=== PATIENT | female | born 1935 | race Caucasian/White ===

== ENCOUNTER → 2022-02-25 15:00 | Outpatient (CLI) | payer MEDICARE, MEDICAID, SELFPAY ==
--- NOTE | 2022-02-25 15:07 | DI.US.S_ITS ---
PROCEDURE: US PERIPH VENOUS LOW EXTREM RT INDICATIONS: SWELLING/EDEMA TECHNIQUE: Real-time imaging, as well as color and pulse Doppler interrogation, were performed of the lower extremity deep veins from the inguinal ligament to the popliteal fossa. COMPARISON: None. FINDINGS: There are intraluminal filling defects involving the common femoral vein, [id number] superficial femoral vein, and popliteal vein, consistent with DVT. The distal superficial femoral vein is occluded. IMPRESSION: The exam is positive for DVT of the right lower extremity. Unable to get in touch with the ordering physician. The patient was sent to the emergency department for clinical evaluation and management. The result was discussed with Dr. Diez. Dictated by: Shanice Sanchez M.D. on 02/25/2022 at 16:15 Approved by: Shanice Sanchez M.D. on 02/25/2022 at 16:36
== END ==
PROVIDERS: Referring Provider Nurse Practitioner Family; Visit Provider Nurse Practitioner Family
DX: I82.411 Acute embolism and thrombosis of right femoral vein (principal); I82.431 Acute embolism and thrombosis of right popliteal vein; I82.811 Embolism and thrombosis of superficial veins of right lower extremity
CPT/HCPCS: 93971

== ENCOUNTER 2022-02-25 15:48 | Emergency (ER) | payer MEDICARE, MEDICAID, SELFPAY ==
[2022-02-25 15:53] VITALS: BP 152/72; PULSE 94; RESP 20; TEMP 36.6; O2SAT 99
--- NOTE | 2022-02-25 17:41 | PC.NURSE ---
Pt arrives to ED from [facility]. had outpatient US of RLE today which was +DVT. Pt reports she does not currently take blood thinners however pt is poor historian with a h/o dementia. Pt resting in [facility] of ED with acute care RN at side. Attempted to call multiple times to get in contact with medical care administrator. Pt safe and daughter Karely made aware of plan of care.
--- NOTE | 2022-02-25 17:54 | PC.NURSE ---
Contacted [facility] clinic administrator-- [phone]. Given number to Kit, [employer] [phone] in which RN left a message on voicemail and a number to the [employer] [phone] and left a message their voicemail.
--- NOTE | 2022-02-25 18:18 | ED.LOWEXIN ---
HPI - Extremity Injury (Lower) <Lilo Singleton PA-C - Last Filed: 02/25/22 19:12> General Chief Complaint: Extremity Injury, Lower Stated Complaint: posivitive blood clot rt leg Time Seen by Provider: 02/25/22 17:24 Source: other Mode of arrival: Wheelchair History of Present Illness HPI Narrative: 86-year-old female with Alzheimer's disease comes into the ED with a right lower leg DVT diagnosis. Patient moved into [facility] yesterday, they sent her for an ultrasound this morning based on a physical exam of the right lower leg, ultrasound was positive for a DVT. Patient is currently not on any medications per patient's daughter Karely. Patient is DNR, Karely would like for patient to be started on anticoagulation as treatment for the DVT. Karely endorses no known allergies for the patient. Also endorses that the current mental status of the patient is her baseline. Related Data Previous Rx's Medication Instructions Recorded apixaban 5 mg (74 tabs) tablets in 5 mg PO Q12H #74 ea 02/25/22 a dose pack (Eliquis DVT-PE Treat 30D Start) Review of Systems <Lilo Singleton PA-C - Last Filed: 02/25/22 19:12> Review of Systems Narrative: Patient has Alzheimer's disease, unable to provide ROS. ROS Unobtainable: All systems reviewed & are unremarkable except as noted in HPI and below and Unobtainable due to mental condition Constitutional Constitutional: Denies chills, Denies fatigue, Denies fever(s), Denies frequent falls, Denies lethargy and Denies weakness Eyes Eyes: Denies change in vision, Denies eye discharge, Denies irritation and Denies loss of vision ENT Ears, Nose, Mouth, and Throat: Denies change in voice, Denies dizziness, Denies neck pain, Denies sore throat and Denies throat swelling Cardiovascular Cardiovascular: Denies chest pain, Denies irregular heart rhythm, Denies lightheadedness, Denies palpitations, Denies dyspnea, Denies dyspnea on exertion and Denies orthopnea Respiratory Respiratory: Denies cough, Denies dyspnea, Denies dyspnea on exertion and Denies wheezing Gastrointestinal Gastrointestinal: Denies abdominal pain, Denies change in bowel habits, Denies diarrhea, Denies nausea and Denies vomiting Genitourinary Genitourinary: Denies hematuria, Denies flank pain, Denies urinary incontinence and Denies urinary urgency Musculoskeletal Musculoskeletal: Denies back pain, Denies muscle weakness, Denies neck pain, Denies numbness and Denies tingling Integumentary/Breasts Skin/Breast: Denies pruritus, Denies erythema, Denies rash and Denies wounds Neurologic Neurologic: Denies behavioral changes, Denies confusion, Denies dizziness, Denies frequent falls, Denies loss of vision, Denies numbness, Denies tingling and Denies weakness Psychiatric Psychiatric: Denies anxiety, Denies behavioral changes, Denies confusion, Denies depression, Denies homicidal ideation and Denies suicidal ideation Endocrine Endocrine: Denies fatigue, Denies flushing and Denies palpitations Hematologic/Lymphatic Hematologic/Lymphatic: Denies easy bruising Allergic/Immunologic Allergic/Immunologic: Denies urticaria, Denies throat swelling and Denies wheezing Exam <Lilo Singleton PA-C - Last Filed: 02/25/22 19:12> Narrative Exam Narrative: Const General:?cooperative, healthy appearing and comfortable; patient has Alzheimer's disease, repeatedly ask the same questions. Patient is very pleasant. [facility] Head:?normal to inspection Ears:?hearing grossly normal bilaterally Nose:?external nose normal Face and sinus:?normal facial exam and sinuses nontender Mouth:?oral mucosae normal Throat:?posterior oropharynx normal Eyes General:?appearance normal, both eyes and all related structures Neck Neck:?normal visual inspection and no lymphadenopathy noted Resp Effort & Inspection:?normal respiratory effort Auscultation:?clear to auscultation bilaterally Cardio Rate:?regular rate Rhythm:?regular rhythm Musculoskeletal Right lower leg swollen compared to left. No erythema, tenderness to palpation. Skin is intact. Neuro General:?patient alert, patient awake and patient oriented x3 Initial Vital Signs Initial Vital Signs: Vital Signs Temperature 97.8 F 02/25/22 15:53 Pulse Rate 94 H 02/25/22 15:53 Respiratory Rate 20 02/25/22 15:53 Blood Pressure 152/72 H 02/25/22 15:53 Pulse Oximetry 99 02/25/22 15:53 Oxygen Delivery Method 02/25/22 15:53 <Catarina Diez DO - Last Filed: 02/28/22 14:44> Initial Vital Signs Initial Vital Signs: Vital Signs Temperature 97.8 F 02/25/22 15:53 Pulse Rate 94 H 02/25/22 15:53 Respiratory Rate 20 02/25/22 15:53 Blood Pressure 152/72 H 02/25/22 15:53 Pulse Oximetry 99 02/25/22 15:53 Oxygen Delivery Method 02/25/22 15:53 Course <Lilo Singleton PA-C - Last Filed: 02/25/22 19:12> Orders Ordered: Discontinued Medications Apixaban (Apixaban 5 Mg Tablet) 10 mg PO NOW ONE Stop: 02/25/22 18:17 Last Admin: 02/25/22 18:22 Dose: 10 mg Documented By: CTS Vital Signs Vital signs: Vital Signs - 8 hr 02/25/22 15:53 Temperature 97.8 F Pulse Rate 94 H Respiratory Rate 20 Blood Pressure 152/72 H Pulse Oximetry 99 Oxygen Delivery Method Room Air <Catarina Diez DO - Last Filed: 02/28/22 14:44> Orders Ordered: Discontinued Medications Apixaban (Apixaban 5 Mg Tablet) 10 mg PO NOW ONE Stop: 02/25/22 18:17 Last Admin: 02/25/22 18:22 Dose: 10 mg Documented By: CTS Vital Signs Vital signs: Vital Signs - 8 hr 02/25/22 15:53 Temperature 97.8 F Pulse Rate 94 H Respiratory Rate 20 Blood Pressure 152/72 H Pulse Oximetry 99 Oxygen Delivery Method Room Air MDM - Extremity Injury (Lower) <Lilo Singleton PA-C - Last Filed: 02/25/22 19:12> Imaging Data US - DVT: Radiologist's Impression: PROCEDURE:? US PERIPH VENOUS LOW EXTREM RT ? INDICATIONS:? SWELLING/EDEMA ? TECHNIQUE:? Real-time imaging, as well as color and pulse Doppler interrogation, were performed of the lower extremity deep veins from the inguinal ligament to the popliteal fossa.? ? COMPARISON:? None. ? FINDINGS:? There are intraluminal filling defects involving the common femoral vein, [id number] superficial femoral vein, and popliteal vein, consistent with DVT.? The distal superficial femoral vein is occluded. ? IMPRESSION:? The exam is positive for DVT of the right lower extremity. ? Unable to get in touch with the ordering physician.? The patient was sent to the emergency department for clinical evaluation and management.? The result was discussed with Dr. Diez.? ? ? Dictated by: Shanice Sanchez M.D. on 02/25/2022 at 16:15 ? ? Approved by: Shanice Sanchez M.D. on 02/25/2022 at 16:36 ? MDM Narrative Medical decision making narrative: 86-year-old female with Alzheimer's disease comes into the ED with a right lower leg DVT diagnosis. Physical exam shows right lower leg more swollen than the left. Patient is breathing normally, with regular work of breathing and is comfortable. Will start patient on Eliquis. Discharge patient back to [facility] with ED return precautions. Discharge Plan Departure Patient Disposition: Home Clinical Impression: DVT (deep venous thrombosis) Instructions: DI for Deep Vein Thrombosis Activity Restrictions/Additional Instructions: You were evaluated in the ED for a blood clot in the leg today. You are being started on anticoagulant medication which are basically blood thinners. Please return to the ED if your symptoms worsen, you experience shortness of breath, chest pain. Prescriptions: New Eliquis DVT-PE Treat 30D Start 5 mg (74 tabs) tablets,dose pack 5 mg PO Q12H Qty: 74 0RF Visit Report Forms: Patient Portal/API <Catarina Diez, DO - Last Filed: 02/28/22 14:44> Cosign ED Attending Cosfeltonature Attestation: I was immediately available in the department for consultation. Documentation has been reviewed.
[2022-02-25] MEDS: APIXABAN 5 MG TABLET 10 MG PO (18:22)
--- NOTE | 2022-02-25 18:23 | PC.NURSE ---
contact made with facility. pt has no allergies and takes no meds. transport from facility coming to bring pt home in 20 min.
== END 2022-02-25 18:39 | disposition home or self-care (01) ==
PROVIDERS: Emergency Provider Student in an Organized Health Care Education/Training Program
DX: I82.401 Acute embolism and thrombosis of unspecified deep veins of right lower extremity (principal); G30.9 Alzheimer's disease, unspecified; I82.411 Acute embolism and thrombosis of right femoral vein; I82.431 Acute embolism and thrombosis of right popliteal vein; I82.811 Embolism and thrombosis of superficial veins of right lower extremity
CPT/HCPCS: 93971; 99283

== ENCOUNTER → 2022-02-26 06:09 | Outpatient (ROUT) | payer MEDICARE, SELFPAY ==
[2022-02-26 09:55] LABS: Add Manual Diff / Slide Review NO; Basophils Absolute Auto 0 /uL (0-100); Basophils Percent Auto 0.7 % (0-2); Eosinophils Absolute Auto 300 /uL (0-450); Hematocrit 36.3 % (36-46); Hemoglobin 12.3 g/dL (12.0-16.0); Lymphocytes Absolute Auto 1600 /uL (1100-4500); Lymphocytes Percent Auto 25.2 % (25-40); Mean Corpuscular HGB Conc 33.7 % (30-36); Mean Corpuscular Hemoglobin 29.6 PG (26-34); Mean Corpuscular Volume 87.9 fL (80-100); Monocytes Absolute Auto 600 /uL (0-900); Monocytes Percent Auto 9.6 % (3-14); Neutrophils Absolute Auto 3700 /uL (1500-7000); Neutrophils Percent Auto 59.5 % (50-75); Platelet Count 214 X10^3/uL (150-400); Red Blood Cell Count 4.14 X10^6/uL (4.0-5.2); Red Cell Distribution Width 14.8 % (11.6-14.8); White Blood Cell Count 6.2 X10^3/uL (4.5-11.0)
[2022-02-26 10:13] LABS: Alanine Aminotransferase 14 IU/L (<35); Albumin 3.6 g/dL (3.5-5.0); Albumin Globulin Ratio 1.2 (1.0-2.8); Alkaline Phosphatase 78 U/L (38-126); Aspartate Aminotransferase 18 IU/L (14-36); BUN Creatinine Ratio 22.4 (6-22); Bilirubin Total 0.3 mg/dL (0.2-1.3); Blood Urea Nitrogen 19 mg/dL (7-17); Calcium 8.6 mg/dL (8.4-10.2); Carbon Dioxide 23 mmol/L (22-32); Chloride 106 mmol/L (98-107); Estimated Glomerular Filt Rate > 60 mL/min (>60); Globulin 2.9 g/dL (1.7-4.1); Glucose 86 mg/dL (80-110); HEMOLYSIS < 15 (0-50); Potassium 4.3 mmol/L (3.4-5.1); Sodium 137 mmol/L (137-145); Total Protein 6.5 g/dL (6.3-8.2)
[2022-02-26 10:59] LABS: Vitamin B12 294 pg/mL (239-931)
== END ==
PROVIDERS: Visit Provider Nurse Practitioner Family
DX: R60.9 Edema, unspecified (principal); R41.0 Disorientation, unspecified
CPT/HCPCS: 36415; 80053; 82607; 84443; 85025

== ENCOUNTER → 2022-09-10 07:37 | Outpatient (ROUT) | payer MEDICARE, MEDICAID, SELFPAY ==
[2022-09-10 07:54] LABS: Add Manual Diff / Slide Review NO; Basophils Absolute Auto 0 /uL (0-100); Basophils Percent Auto 0.6 % (0-2); Eosinophils Absolute Auto 500 /uL (0-450); Eosinophils Percent Auto 7.5 % (2-4); Hematocrit 38.5 % (36-46); Lymphocytes Absolute Auto 2000 /uL (1100-4500); Lymphocytes Percent Auto 27.2 % (25-40); Mean Corpuscular HGB Conc 33.7 % (30-36); Mean Corpuscular Hemoglobin 30.3 PG (26-34); Mean Corpuscular Volume 89.9 fL (80-100); Monocytes Absolute Auto 600 /uL (0-900); Monocytes Percent Auto 7.9 % (3-14); Neutrophils Absolute Auto 4100 /uL (1500-7000); Neutrophils Percent Auto 56.8 % (50-75); Platelet Count 243 X10^3/uL (150-400); Red Blood Cell Count 4.29 X10^6/uL (4.0-5.2); Red Cell Distribution Width 13.8 % (11.6-14.8); White Blood Cell Count 7.2 X10^3/uL (4.5-11.0)
[2022-09-10 08:10] LABS: Alanine Aminotransferase 18 IU/L (<35); Albumin 4.2 g/dL (3.5-5.0); Albumin Globulin Ratio 1.3 (1.0-2.8); Alkaline Phosphatase 99 U/L (38-126); Aspartate Aminotransferase 36 IU/L (14-36); Bilirubin Total 0.6 mg/dL (0.2-1.3); Blood Urea Nitrogen 27 mg/dL (7-17); Carbon Dioxide 30 mmol/L (22-32); Chloride 96 mmol/L (98-107); Estimated Glomerular Filt Rate > 60 mL/min (>60); Globulin 3.2 g/dL (1.7-4.1); Glucose 102 mg/dL (80-110); HEMOLYSIS 17 (0-50); Potassium 4.4 mmol/L (3.4-5.1); Sodium 134 mmol/L (137-145); Total Protein 7.4 g/dL (6.3-8.2)
[2022-09-10 08:59] LABS: Vitamin B12 343 pg/mL (239-931)
== END ==
PROVIDERS: Visit Provider Nurse Practitioner Family
DX: R05.9 Cough, unspecified (principal); R53.83 Other fatigue
CPT/HCPCS: 36415; 80053; 82607; 85025

== ENCOUNTER → 2022-09-20 16:12 | Outpatient (CLI) | payer MEDICARE, MEDICAID, SELFPAY ==
--- NOTE | 2022-09-20 16:17 | DI.RAD.S_ITS ---
PROCEDURE: XR CHEST 2V INDICATIONS: R05.7 TECHNIQUE: 2 views of the chest were acquired. COMPARISON: None. FINDINGS: The patient is slightly rotated. Surgical changes and devices: None. Lungs and pleura: Lungs are clear. No pleural effusions or pneumothorax. Mediastinum: Mediastinal contours are normal. Heart size is normal. Bones and chest wall: No suspicious bony abnormalities. Soft tissues appear unremarkable. Moderate degenerative changes throughout the visualized spine. Vertebral body heights are preserved. IMPRESSION: No acute cardiopulmonary findings or concerning pulmonary consolidation. Dictated by: Grey Alvarenga M.D. on 09/20/2022 at 15:43 Approved by: Grey Alvarenga M.D. on 09/20/2022 at 15:45
== END ==
PROVIDERS: PCP Nurse Practitioner Family; Referring Provider Nurse Practitioner Family; Visit Provider Nurse Practitioner Family
DX: R05.9 Cough, unspecified (principal); R60.9 Edema, unspecified
CPT/HCPCS: 71046

== ENCOUNTER → 2022-09-24 07:28 | Outpatient (ROUT) | payer MEDICARE, MEDICAID, SELFPAY ==
[2022-09-24 07:42] LABS: Add Manual Diff / Slide Review NO; Basophils Absolute Auto 0 /uL (0-100); Basophils Percent Auto 0.5 % (0-2); Eosinophils Absolute Auto 500 /uL (0-450); Eosinophils Percent Auto 6.2 % (2-4); Hematocrit 36.5 % (36-46); Hemoglobin 12.3 g/dL (12.0-16.0); Lymphocytes Absolute Auto 2400 /uL (1100-4500); Lymphocytes Percent Auto 28.8 % (25-40); Mean Corpuscular HGB Conc 33.6 % (30-36); Mean Corpuscular Hemoglobin 30.1 PG (26-34); Mean Corpuscular Volume 89.6 fL (80-100); Monocytes Absolute Auto 700 /uL (0-900); Monocytes Percent Auto 8.1 % (3-14); Neutrophils Absolute Auto 4700 /uL (1500-7000); Neutrophils Percent Auto 56.4 % (50-75); Platelet Count 219 X10^3/uL (150-400); Red Blood Cell Count 4.08 X10^6/uL (4.0-5.2); Red Cell Distribution Width 13.6 % (11.6-14.8); White Blood Cell Count 8.4 X10^3/uL (4.5-11.0)
[2022-09-24 07:58] LABS: Alanine Aminotransferase 17 IU/L (<35); Albumin 3.3 g/dL (3.5-5.0); Albumin Globulin Ratio 1.2 (1.0-2.8); Alkaline Phosphatase 74 U/L (38-126); Aspartate Aminotransferase 23 IU/L (14-36); BUN Creatinine Ratio 27.7 (6-22); Bilirubin Total 0.5 mg/dL (0.2-1.3); Blood Urea Nitrogen 26 mg/dL (7-17); Calcium 8.3 mg/dL (8.4-10.2); Carbon Dioxide 31 mmol/L (22-32); Chloride 104 mmol/L (98-107); Estimated Glomerular Filt Rate 60 mL/min (>60); Globulin 2.7 g/dL (1.7-4.1); Glucose 99 mg/dL (80-110); HEMOLYSIS < 15 (0-50); Sodium 137 mmol/L (137-145)
[2022-09-24 08:05] LABS: NT-proBNP (BNP-Adult 18+) 461 pg/mL (<450)
== END ==
PROVIDERS: PCP Nurse Practitioner Family; Visit Provider Nurse Practitioner Family
DX: G30.1 Alzheimer's disease with late onset (principal); E66.9 Obesity, unspecified; H90.6 Mixed conductive and sensorineural hearing loss, bilateral; I10 Essential (primary) hypertension
CPT/HCPCS: 36415; 80053; 83880; 85025

== ENCOUNTER → 2022-10-02 15:34 | Outpatient (ROUT) | payer MEDICARE, MEDICAID, SELFPAY ==
[2022-10-02 15:41] LABS: Appearance Urine UA CLEAR; Bilirubin Urine UA NEGATIVE (NEGATIVE); Color Urine UA YELLOW; Glucose Urine UA NEGATIVE (Negative); Ketones Urine UA NEGATIVE (NEGATIVE); Leukocyte Esterase Urine UA NEGATIVE (NEGATIVE); Nitrite Urine UA NEGATIVE (Negative); Occult Blood Urine UA TRACE-INTACT (Negative); Protein Urine UA NEGATIVE (Negative); Specific Gravity Urine UA 1.015 (1.000-1.035); Urobilinogen Urine UA 0.2 E.U./dL (0.2)
[2022-10-02 16:16] LABS: Bacteria Urine Occasional (0-1); Culture Indicated Urine Cult Not Indicated; RBC Urine 0-1/HPF (0-5/HPF); Squamous Epithelial Cell Urine 1-5 /HPF (0-5/HPF); WBC Urine None Seen (0-5/HPF)
== END ==
PROVIDERS: PCP Nurse Practitioner Family; Visit Provider Nurse Practitioner Family
DX: N39.498 Other specified urinary incontinence (principal)
CPT/HCPCS: 81001

== ENCOUNTER → 2022-11-16 14:07 | Outpatient (ROUT) | payer MEDICARE, MEDICAID, SELFPAY ==
[2022-11-16 14:11] LABS: Appearance Urine UA CLEAR; Bilirubin Urine UA NEGATIVE (NEGATIVE); Color Urine UA YELLOW; Glucose Urine UA NEGATIVE (Negative); Ketones Urine UA NEGATIVE (NEGATIVE); Leukocyte Esterase Urine UA NEGATIVE (NEGATIVE); Nitrite Urine UA NEGATIVE (Negative); Occult Blood Urine UA NEGATIVE (Negative); Protein Urine UA NEGATIVE (Negative); Specific Gravity Urine UA 1.015 (1.000-1.035); Urobilinogen Urine UA 0.2 E.U./dL (0.2)
[2022-11-16 14:22] LABS: pH Urine UA 5.5 (4.5-8.0)
[2022-11-16 14:23] LABS: Bacteria Urine None Seen; RBC Urine None Seen (0-5/HPF); Squamous Epithelial Cell Urine 1-5 /HPF (0-5/HPF); WBC Urine None Seen (0-5/HPF)
[2022-11-16 14:24] LABS: Culture Indicated Urine Cult Not Indicated; Hyaline Casts Urine 1-5/LPF
== END ==
PROVIDERS: PCP Nurse Practitioner Family; Visit Provider Nurse Practitioner Family
DX: R35.0 Frequency of micturition (principal)
CPT/HCPCS: 81001

== ENCOUNTER → 2022-12-04 10:33 | Outpatient (CLI) | payer MEDICARE, MEDICAID, SELFPAY ==
--- NOTE | 2022-12-04 10:35 | DI.CT.S_ITS ---
PROCEDURE: CT CHEST WO CON INDICATIONS: Chronic cough TECHNIQUE: Noncontrast 5 mm thick sections acquired from the pulmonary apices to the posterior costophrenic angles. 1 mm lung window, 5 mm thick coronal and sagittal and 7 mm axial MIP reformats were then acquired. For radiation dose reduction, the following was used: automated exposure control, adjustment of mA and/or kV according to patient size. COMPARISON: None. FINDINGS: Image quality: Excellent. Lungs and pleura: No acute air space opacities. No pleural effusions or pneumothorax. Central and peripheral airways are patent and normal in caliber. Bronchial thickening. Mediastinum: Heart size is normal. No pericardial effusion. No mediastinal adenopathy by size criteria. Thoracic aorta and central pulmonary arteries are normal in size. Esophagus is normal in caliber. Moderate hiatal hernia. Bones and chest wall: No suspicious bony lesions. Chronic T7 compression deformity without endplate retropulsion. No axillary or supraclavicular adenopathy by size criteria. Thyroid gland is unremarkable . Abdomen: Left adrenal adenoma by Hounsfield units criteria (-7). IMPRESSION: Bronchial thickening, suggestive of infectious or inflammatory bronchitis. Other chronic findings as above. Dictated by: Lobo Alvarado M.D. on 12/04/2022 at 12:43 Approved by: Lobo Alvarado M.D. on 12/04/2022 at 12:46
== END ==
PROVIDERS: PCP Nurse Practitioner Family; Referring Provider Nurse Practitioner Family; Visit Provider Nurse Practitioner Family
DX: D35.02 Benign neoplasm of left adrenal gland (principal); K44.9 Diaphragmatic hernia without obstruction or gangrene; R05.3 Chronic cough; R53.83 Other fatigue
CPT/HCPCS: 71250

== ENCOUNTER 2023-03-11 22:29 | Emergency (ER) | payer MEDICARE, MEDICAID, SELFPAY ==
[2023-03-11 22:32] VITALS: PULSE 91; O2SAT 97
--- NOTE | 2023-03-11 22:33 | DI.RAD.S_ITS ---
PROCEDURE: XR HUMERUS RT 2V INDICATIONS: Upper arm pain after fall TECHNIQUE: 2 views of the humerus were acquired. COMPARISON: [facility], CR, XR CHEST 2V, 09/20/2022, 16:21. FINDINGS: Bones: No fractures or dislocations involving the right humerus. There is chronic elevation of the distal clavicle. Degenerative changes of the acromion, probably os acromiale.. No suspicious bony lesions. Soft tissues: No suspicious soft tissue calcifications. IMPRESSION: 1. No humeral fracture. 2. Distal clavicle elevation appears chronic. Dictated by: Mary Cameron M.D. on 03/11/2023 at 23:58 Approved by: Mary Cameron M.D. on 03/12/2023 at 0:03
--- NOTE | 2023-03-11 22:33 | DI.RAD.S_ITS ---
PROCEDURE: XR SHOULDER RT MIN 2V INDICATIONS: Right shoulder pain after fall TECHNIQUE: 2 views of the shoulder were acquired. COMPARISON: None. FINDINGS: Bones: No fractures or dislocations. Chronic distal clavicle elevation. Chronic loss of acromiohumeral interval. Possible fragmentation of os acromiale or remote trauma. No suspicious bony lesions. Visualized ribs appear intact. Soft tissues: No suspicious soft tissue calcifications. IMPRESSION: No acute process. Dictated by: Mary Cameron M.D. on 03/12/2023 at 0:03 Approved by: Mary Cameron M.D. on 03/12/2023 at 0:05
--- NOTE | 2023-03-11 22:34 | ED.GENADULT ---
HPI - General Adult General Chief complaint: Fall Stated complaint: r arm and shoulder pain Time Seen by Provider: 03/11/23 22:31 Source: patient and EMS Mode of arrival: EMS Limitations: other (Dementia) History of Present Illness HPI narrative: Patient is an 87-year-old female. She is on Eliquis. Has a history of dementia. Is at her baseline mental status per EMS who got this information from the nursing facility. Apparently the patient had an unwitnessed fall in the dining room. Who was no reported loss of consciousness. Has been reporting discomfort to her right arm and right shoulder. No other injuries reported from the event. Patient can provide very limited HPI and review of systems given her history of dementia. Related Data Previous Rx's Medication Instructions Recorded apixaban 5 mg (74 tabs) tablets in 5 mg PO Q12H #74 ea 02/25/22 a dose pack (Eliquis DVT-PE Treat 30D Start) Review of Systems Constitutional Constitutional: Reports system reviewed and no additional complaints, except as documented Musculoskeletal Musculoskeletal: Reports system reviewed and no additional complaints, except as documented Neurologic Neurologic: Reports system reviewed and no additional complaints, except as documented Hematologic/Lymphatic On Anticoagulants: Yes Patient History Social History Smoking Status: Former smoker Exam Initial Vital Signs Initial Vital Signs: Vital Signs Pulse Rate 91 H 03/11/23 22:32 Pulse Oximetry 97 03/11/23 22:32 Oxygen Delivery Method Room Air 03/11/23 22:32 HENMT Head: normal to inspection and normocephalic Resp Effort & Inspection: normal respiratory effort Skin General: no rashes or lesions noted Neuro General: patient alert, patient awake and moves all extremities Extrem Other: Seems to have no discomfort with movement of her right wrist and right elbow. Points to her proximal right humerus and right shoulder where she is having discomfort. No bruising over the area. Lower extremities unremarkable. Pelvis is unremarkable. Course Orders Ordered: ED Orders 03/11/23 22:33 CT cervical spine wo con Stat CT head/brain wo con Stat XR humerus RT 2V Stat XR shoulder RT min 2V Stat Vital Signs Vital signs: Vital Signs - 8 hr 03/11/23 22:32 03/11/23 22:35 03/11/23 22:35 Temperature 97.5 F L Pulse Rate 91 H 94 H 111 H Respiratory Rate 20 19 Blood Pressure 135/69 Pulse Oximetry 97 96 96 Oxygen Delivery Method Room Air Room Air Room Air 03/11/23 22:35 03/11/23 23:05 03/11/23 23:12 Temperature Pulse Rate 97 H 99 H Respiratory Rate 18 23 Blood Pressure 135/69 Pulse Oximetry 95 Oxygen Delivery Method Room Air 03/11/23 23:12 03/11/23 23:30 03/11/23 23:31 Temperature Pulse Rate 97 H Respiratory Rate 20 Blood Pressure 108/77 142/60 H Pulse Oximetry Oxygen Delivery Method 03/11/23 23:31 03/12/23 00:00 03/12/23 00:01 Temperature Pulse Rate 98 H 98 H 93 H Respiratory Rate 20 22 24 Blood Pressure Pulse Oximetry 96 93 94 Oxygen Delivery Method Room Air 03/12/23 00:02 03/12/23 00:02 03/12/23 00:30 Temperature Pulse Rate 92 H 87 Respiratory Rate 21 20 Blood Pressure 105/66 Pulse Oximetry 94 94 Oxygen Delivery Method Room Air 03/12/23 00:31 03/12/23 00:31 Temperature Pulse Rate 97 H Respiratory Rate 29 H Blood Pressure 134/75 Pulse Oximetry 95 Oxygen Delivery Method Medical Decision Making Imaging Data CT scan - head: Radiologist's Impression: PROCEDURE: CT HEAD/BRAIN WO CON INDICATIONS: Fall on thinners TECHNIQUE: Noncontrast 4.5 mm thick angled axial sections acquired from the foramen magnum to the vertex, with coronal and sagittal reformats. For radiation dose reduction, the following was used: automated exposure control, adjustment of mA and/or kV according to patient size. COMPARISON: None. FINDINGS: Image quality: Excellent. CSF spaces: Basal cisterns are patent. No extra-axial fluid collections. The ventricles are symmetric in size and shape. Brain: No intracranial bleeds or masses. There is cerebral volume loss for age, with resultant ventricular and sulcal prominence. There are periventricular and deep white matter chronic small vessel ischemic changes. There is intracranial internal carotid artery atherosclerosis. Skull and face: Calvarium and visualized facial bones appear intact, without suspicious lesions. Hyperostosis frontalis interna. Sinuses: Maxillary sinuses demonstrate mucosal thickening and small air-fluid levels, left worse than right. Air-fluid level in the inferior left frontal sinus, and sphenoid sinuses. Occasional opacification of ethmoid air cells. Aerated mastoid cavities. IMPRESSION: 1. No CT evidence of acute intracranial trauma. 2. No significant soft tissue injury or underlying fracture. 3. Age-appropriate cerebral cortical volume loss and chronic microvascular ischemic changes. 4. Pansinusitis as described. CT - cervical spine: Radiologist's Impression: PROCEDURE: CT CERVICAL SPINE WO CON INDICATIONS: Fall on thinners TECHNIQUE: Noncontrast 3 mm thick sections acquired from the skull base to the T4 level. Sagittal and coronal reformats were then constructed. For radiation dose reduction, the following was used: automated exposure control, adjustment of mA and/or kV according to patient size. COMPARISON: None. FINDINGS: Image quality: Excellent. Bones: The craniocervical junction is intact. Prominent degenerative space loss and spurring at the atlantodental interval. No cervical vertebral body fractures or pathologic subluxation. Moderately severe disc height loss from C3 through C7 and moderate anterior endplate spurs. Near complete loss of disc space and partial ankylosis at the C5-6 level. Trace anterolisthesis C7 on T1. Bilateral facet arthropathy at multiple levels. Soft tissues: Prevertebral soft tissues are normal in thickness. No paravertebral hematomas. No apical pneumothoraces. IMPRESSION: 1. No CT evidence of acute cervical spine injury. 2. Prominent chronic appearing degenerative disc height loss and mild endplate spurring. Extremity x-ray #1: Radiologist's Impression: PROCEDURE: XR HUMERUS RT 2V INDICATIONS: Upper arm pain after fall TECHNIQUE: 2 views of the humerus were acquired. COMPARISON: [facility], , XR CHEST 2V, 09/20/2022, 16:21. FINDINGS: Bones: No fractures or dislocations involving the right humerus. There is chronic elevation of the distal clavicle. Degenerative changes of the acromion, probably os acromiale.. No suspicious bony lesions. Soft tissues: No suspicious soft tissue calcifications. IMPRESSION: 1. No humeral fracture. 2. Distal clavicle elevation appears chronic. Extremity x-ray #2: Radiologist's Impression: PROCEDURE: XR SHOULDER RT MIN 2V INDICATIONS: Right shoulder pain after fall TECHNIQUE: 2 views of the shoulder were acquired. COMPARISON: None. FINDINGS: Bones: No fractures or dislocations. Chronic distal clavicle elevation. Chronic loss of acromiohumeral interval. Possible fragmentation of os acromiale or remote trauma. No suspicious bony lesions. Visualized ribs appear intact. Soft tissues: No suspicious soft tissue calcifications. IMPRESSION: No acute process. MDM Narrative Medical decision making narrative: Patient is at her baseline mental status per EMS. CT scans and x-ray showed no acute pathology. It does appear that she has an hold for right AC separation. No other injuries from the event. Will discharge patient back home. Discharge Plan Departure Patient Disposition: Home Clinical Impression: Pain in right arm Instructions: How to Prevent Falls Activity Restrictions/Additional Instructions: X-rays did not show any signs of fractures or dislocations. She can continue to take all of her medications as directed. Contact her primary doctor for a follow-up. Prescriptions: No Action Eliquis DVT-PE Treat 30D Start 5 mg (74 tabs) tablets,dose pack 5 mg PO Q12H Qty: 74 0RF Referrals: Alicia Pal ARNP [Primary Care Provider] - Stand Alone Forms: Patient Portal/API
[2023-03-11 22:35] VITALS: BP 135/69; PULSE 111; PULSE 94; RESP 19; RESP 20; TEMP 36.4; O2SAT 96
[2023-03-11 23:05] VITALS: PULSE 97; RESP 18
[2023-03-11 23:12] VITALS: BP 108/77; PULSE 99; RESP 23; O2SAT 95
[2023-03-11 23:30] VITALS: PULSE 97; RESP 20
[2023-03-11 23:31] VITALS: BP 142/60; PULSE 98; RESP 20; O2SAT 96
[2023-03-12] VITALS: PULSE 98; RESP 22; O2SAT 93
[2023-03-12 00:01] VITALS: PULSE 93; RESP 24; O2SAT 94
[2023-03-12 00:02] VITALS: BP 105/66; PULSE 92; RESP 21; O2SAT 94
[2023-03-12 00:30] VITALS: PULSE 87; RESP 20; O2SAT 94
[2023-03-12 00:31] VITALS: BP 134/75; PULSE 97; RESP 29; O2SAT 95
== END 2023-03-12 00:41 | disposition home or self-care (01) ==
PROVIDERS: Emergency Provider Emergency Medicine; PCP Nurse Practitioner Family
DX: M79.601 Pain in right arm (principal); W18.30XA Fall on same level, unspecified, initial encounter; F03.90 Unspecified dementia, unspecified severity, without behavioral disturbance, psychotic disturbance, mood disturbance, and anxiety; Z79.01 Long term (current) use of anticoagulants
CPT/HCPCS: 70450; 72125; 73030; 73060; 99284

== ENCOUNTER → 2023-08-19 06:14 | Outpatient (ROUT) | payer MEDICARE, MEDICAID, SELFPAY ==
[2023-08-19 08:12] LABS: Add Manual Diff / Slide Review NO; Basophils Absolute Auto 100 /uL (0-100); Basophils Percent Auto 0.7 % (0-2); Eosinophils Absolute Auto 700 /uL (0-450); Eosinophils Percent Auto 7.9 % (2-4); Hematocrit 38.4 % (36-46); Hemoglobin 13.1 g/dL (12.0-16.0); Lymphocytes Absolute Auto 3400 /uL (1100-4500); Lymphocytes Percent Auto 38.3 % (25-40); Mean Corpuscular HGB Conc 34.1 % (30-36); Mean Corpuscular Hemoglobin 31.1 PG (26-34); Mean Corpuscular Volume 91.2 fL (80-100); Monocytes Absolute Auto 700 /uL (0-900); Monocytes Percent Auto 8.4 % (3-14); Neutrophils Absolute Auto 3900 /uL (1500-7000); Neutrophils Percent Auto 44.7 % (50-75); Platelet Count 229 X10^3/uL (150-400); Red Blood Cell Count 4.21 X10^6/uL (4.0-5.2); Red Cell Distribution Width 13.1 % (11.6-14.8); White Blood Cell Count 8.8 X10^3/uL (4.5-11.0)
[2023-08-19 08:34] LABS: Alanine Aminotransferase 11 IU/L (<35); Albumin 3.3 g/dL (3.5-5.0); Albumin Globulin Ratio 1.2 (1.0-2.8); Alkaline Phosphatase 88 U/L (38-126); Aspartate Aminotransferase 19 IU/L (14-36); BUN Creatinine Ratio 27.9 (6-22); Bilirubin Total 0.6 mg/dL (0.2-1.3); Blood Urea Nitrogen 24 mg/dL (7-17); Calcium 8.9 mg/dL (8.4-10.2); Carbon Dioxide 31 mmol/L (22-32); Chloride 101 mmol/L (98-107); Estimated Glomerular Filt Rate > 60 mL/min (>60); Globulin 2.7 g/dL (1.7-4.1); Glucose 91 mg/dL (80-110); HEMOLYSIS < 15 (0-50); Potassium 3.2 mmol/L (3.4-5.1); Sodium 136 mmol/L (137-145)
[2023-08-19 08:54] LABS: Thyroid Stimulating Hormone 3.31 uIU/mL (0.47-4.68)
== END ==
PROVIDERS: PCP Nurse Practitioner Family; Visit Provider Nurse Practitioner Family
DX: R53.83 Other fatigue (principal)
CPT/HCPCS: 36415; 80053; 84443; 85025

== ENCOUNTER → 2023-09-02 06:18 | Outpatient (ROUT) | payer MEDICARE, MEDICAID, SELFPAY ==
[2023-09-02 08:43] LABS: BUN Creatinine Ratio 25.5 (6-22); Blood Urea Nitrogen 26 mg/dL (7-17); Calcium 9.1 mg/dL (8.4-10.2); Carbon Dioxide 29 mmol/L (22-32); Chloride 101 mmol/L (98-107); Estimated Glomerular Filt Rate 54 mL/min (>60); Glucose 97 mg/dL (80-110); HEMOLYSIS < 15 (0-50); Potassium 3.4 mmol/L (3.4-5.1); Sodium 136 mmol/L (137-145)
== END ==
PROVIDERS: PCP Nurse Practitioner Family; Visit Provider Nurse Practitioner Family
DX: E87.6 Hypokalemia (principal)
CPT/HCPCS: 36415; 80048

== ENCOUNTER → 2023-09-15 15:10 | Outpatient (ROUT) | payer MEDICARE, SELFPAY ==
[2023-09-15 15:17] LABS: Bilirubin Urine UA NEGATIVE (NEGATIVE); Glucose Urine UA NEGATIVE (Negative); Ketones Urine UA NEGATIVE (NEGATIVE); Leukocyte Esterase Urine UA 3+ (NEGATIVE); Nitrite Urine UA NEGATIVE (Negative); Occult Blood Urine UA 1+ (Negative); Protein Urine UA TRACE (Negative); Specific Gravity Urine UA 1.015 (1.000-1.035); Urobilinogen Urine UA 0.2 E.U./dL (0.2)
[2023-09-15 15:36] LABS: Color Urine UA GREEN
[2023-09-15 15:37] LABS: Appearance Urine UA TURBID; Urine Volume 10mL (spun)
[2023-09-15 15:38] LABS: RBC Urine 0-1/HPF (0-5/HPF); WBC Urine >100/HPF (0-5/HPF)
[2023-09-15 15:39] LABS: Bacteria Urine Many (>30); Culture Indicated Urine Specimen Cultured; Squamous Epithelial Cell Urine 5-10 /HPF (0-5/HPF)
== END ==
PROVIDERS: Visit Provider Internal Medicine
DX: N39.0 Urinary tract infection, site not specified (principal)
CPT/HCPCS: 81001; 87086

== ENCOUNTER 2023-11-07 16:05 | Emergency (ER) | payer MEDICARE, MEDICAID, SELFPAY ==
[2023-11-07 16:11] VITALS: BP 115/73; BP 170/90; PULSE 80; PULSE 96; RESP 16; TEMP 37.1; O2SAT 96; O2SAT 97
--- NOTE | 2023-11-07 16:15 | ED_ITS ---
HPI - Fall General Chief Complaint: Trauma Stated Complaint: fall/hit head/on thinners Time Seen by Provider: 11/07/23 16:12 Source: patient and EMS Mode of arrival: EMS History of Present Illness HPI Narrative: 88-year-old female presents by EMS from [facility] for unwitnessed fall. Patient found on the ground, presumed to have hit her head. She is on Eliquis. Patient was pleasantly confused, she does not remember falling. She denies any complaints. Related Data Previous Rx's Medication Instructions Recorded apixaban 5 mg (74 tabs) tablets in 5 mg PO Q12H #74 ea 02/25/22 a dose pack (Eliquis DVT-PE Treat 30D Start) Patient History Social History Smoking Status: Former smoker Smoking Status: Former smoker alcohol intake frequency: other Substance Use Type: does not use Exam Initial Vital Signs Initial Vital Signs: Vital Signs Temperature 98.8 F 11/07/23 16:11 Pulse Rate 80 11/07/23 16:11 Respiratory Rate 16 11/07/23 16:11 Blood Pressure 115/73 11/07/23 16:11 Pulse Oximetry 97 11/07/23 16:11 Oxygen Delivery Method Room Air 11/07/23 16:11 Const: Awake, alert, no acute distress MSK: No deformities, contusion over right knee, pulses intact Skin: Warm, Dry, contusion over right knee Neuro: AO x1, CN II-XII grossly intact, moves all extremities Course Orders Ordered: ED Orders 11/07/23 16:15 CT cervical spine wo con Stat CT head/brain wo con Stat XR knee RT 3V Stat Vital Signs Vital signs: Vital Signs - 8 hr 11/07/23 16:11 11/07/23 17:26 Temperature 98.8 F Pulse Rate 80 87 Respiratory Rate 16 Blood Pressure 115/73 Pulse Oximetry 97 97 Oxygen Delivery Method Room Air Room Air MDM - Fall Differential Diagnosis Differential diagnosis: Likely syncope, concussion with loss of consciousness and concussion without loss of consciousness Imaging Data CT - cervical spine: Radiologist's Impression: PROCEDURE: CT CERVICAL SPINE WO CON INDICATIONS: GLF, HEAD INJ ON ELIQUIS TECHNIQUE: Noncontrast 3 mm thick sections acquired from the skull base to the T4 level. Sagittal and coronal reformats were then constructed. For radiation dose reduction, the following was used: automated exposure control, adjustment of mA and/or kV according to patient size. COMPARISON: [facility], CT, CT CERVICAL SPINE WO CON, 03/11/2023, 22:39. FINDINGS: Image quality: Diagnostic Bones: No fractures or dislocations. Visualized superior ribs are intact. Multilevel degenerative changes. Soft tissues: Prevertebral soft tissues are normal in thickness. No paravertebral hematomas. No apical pneumothoraces. IMPRESSION: No acute displaced fracture or traumatic subluxation. Approved by: Bridgett Storm M.D.,Ph.D. on 11/07/2023 at 15:57 CT scan - head: Radiologist's Impression: PROCEDURE: CT HEAD/BRAIN WO CON INDICATIONS: GLF, HEAD INJ ON ELIQUIS TECHNIQUE: Noncontrast 4.5 mm thick angled axial sections acquired from the foramen magnum to the vertex, with coronal and sagittal reformats. For radiation dose reduction, the following was used: automated exposure control, adjustment of mA and/or kV according to patient size. COMPARISON: [facility], CT, CT HEAD/BRAIN WO CON, 03/11/2023, 22:39. FINDINGS: Image quality: Diagnostic. CSF spaces: Basal cisterns are patent. No extra-axial fluid collections. The ventricles are symmetric in size and shape. Brain: No intracranial bleeds or masses. There is cerebral volume loss for age, with resultant ventricular and sulcal prominence. There are periventricular and deep white matter chronic small vessel ischemic changes. There is intracranial internal carotid artery atherosclerosis. Skull and face: Calvarium and visualized facial bones appear intact, without suspicious lesions. Sinuses: Moderate right and mild left circumferential mucosal thickening of the bilateral maxillary sinuses. Scattered opacification of bilateral ethmoid air cells. Remainder of the visualized sinuses and mastoids are clear. IMPRESSION: No acute intracranial pathology. Approved by: Bridgett Storm M.D.,Ph.D. on 11/07/2023 at 15:59 Extremity x-ray #1: Radiologist's Impression: PROCEDURE: XR KNEE RT 3V INDICATIONS: GLF, SWELLING TECHNIQUE: 3 views of the knee were acquired. COMPARISON: None. FINDINGS: Bones: No fractures or dislocations. No suspicious bony lesions. Moderate medial and lateral and severe patellofemoral compartment osteoarthrosis. Soft tissues: Small joint effusion. No suspicious soft tissue calcifications. IMPRESSION: No acute bony abnormality or significant effusion. Tricompartmental osteoarthrosis, severe in the patellofemoral compartment. Approved by: Bridgett Storm M.D.,Ph.D. on 11/07/2023 at 16:00 [facility] Narrative Medical decision making narrative: Well-appearing patient with fall at her assisted living facility. She is on Eliquis. Patient denies complaints. CT brain, C-spine negative for acute findings. Knee x-ray negative for acute fracture. Patient discharged back to her assisted living facility in stable condition Discharge Plan Departure Patient Disposition: Home Clinical Impression: Dementia Closed head injury Qualifiers: Encounter type: initial encounter Qualified Code(s): S09.90XA - Unspecified injury of head, initial encounter Fall at skilled nursing Qualifiers: Encounter type: initial encounter Qualified Code(s): W19.XXXA - Unspecified fall, initial encounter; Y92.129 - Unspecified place in skilled nursing as the place of occurrence of the external cause Instructions: How to Prevent Falls Activity Restrictions/Additional Instructions: follow up with your pcp as needed Prescriptions: No Action Eliquis DVT-PE Treat 30D Start 5 mg (74 tabs) tablets,dose pack 5 mg PO Q12H Qty: 74 0RF Referrals: Alicia Pal ARNP [Primary Care Provider] - Stand Alone Forms: Patient Portal/API
[2023-11-07 17:26] VITALS: PULSE 87; O2SAT 97
== END 2023-11-07 17:26 | disposition home or self-care (01) ==
PROVIDERS: Emergency Provider Emergency Medicine; PCP Nurse Practitioner Family
DX: S09.8XXA Other specified injuries of head, initial encounter (principal); W19.XXXA Unspecified fall, initial encounter; S80.01XA Contusion of right knee, initial encounter; Y92.129 Unspecified place in nursing home as the place of occurrence of the external cause; F03.90 Unspecified dementia, unspecified severity, without behavioral disturbance, psychotic disturbance, mood disturbance, and anxiety; Z79.01 Long term (current) use of anticoagulants
CPT/HCPCS: 70450; 72125; 73562; 99283; 99284; G0390

== ENCOUNTER 2023-12-30 06:19 | Emergency (ER) | payer MEDICARE, MEDICAID, SELFPAY ==
--- NOTE | 2023-12-30 06:27 | DI.CT.S_ITS ---
PROCEDURE: CT HEAD/BRAIN WO CON INDICATIONS: left knee pain, fall TECHNIQUE: Noncontrast 4.5 mm thick angled axial sections acquired from the foramen magnum to the vertex, with coronal and sagittal reformats. For radiation dose reduction, the following was used: automated exposure control, adjustment of mA and/or kV according to patient size. COMPARISON: [facility], CT, CT HEAD/BRAIN WO CON, 11/07/2023, 16:22. FINDINGS: Image quality: Diagnostic. CSF spaces: Basal cisterns are patent. No extra-axial fluid collections. The ventricles are symmetric in size and shape. Brain: No intracranial bleeds or masses. There is cerebral volume loss for age, with resultant ventricular and sulcal prominence. There are periventricular and deep white matter chronic small vessel ischemic changes. There is intracranial internal carotid artery atherosclerosis. Skull and face: Left forehead hematoma. Calvarium and visualized facial bones appear intact, without suspicious lesions. Sinuses: Air-fluid level, right maxillary sinus. Mucosal thickening, left maxillary sinus. Subtotal anterior left ethmoid and posterior right ethmoid opacification. Dependent soft tissue in the right sphenoid sinus. IMPRESSION: 1. No acute intracranial abnormality. 2. Left forehead hematoma. 3. Acute on chronic sinusitis. Comment: Final report is concordant with preliminary interpretation provided by [facility]. Dictated by: Phan Griffin M.D. on 12/30/2023 at 7:49 Approved by: Phan Griffin M.D. on 12/30/2023 at 7:50
--- NOTE | 2023-12-30 06:27 | DI.RAD.S_ITS ---
PROCEDURE: XR KNEE LT 1TO2V INDICATIONS: left knee pain, fall TECHNIQUE: 2 views of the knee were acquired. COMPARISON: [facility], CR, XR KNEE RT 3V, 11/07/2023, 16:27. FINDINGS: Bones: No fractures or dislocations. No suspicious bony lesions. Moderate to severe tricompartment degenerative change, worst involving the patellofemoral joint. Soft tissues: No joint effusion. No suspicious soft tissue calcifications. IMPRESSION: Degenerative arthritis. No evidence acute bony abnormality. Dictated by: Phan Griffin M.D. on 12/30/2023 at 9:32 Approved by: Phan Griffin M.D. on 12/30/2023 at 9:33
--- NOTE | 2023-12-30 06:27 | DI.CT.S_ITS ---
PROCEDURE: CT CERVICAL SPINE WO CON INDICATIONS: left knee pain, fall TECHNIQUE: Noncontrast 3 mm thick sections acquired from the skull base to the T4 level. Sagittal and coronal reformats were then constructed. For radiation dose reduction, the following was used: automated exposure control, adjustment of mA and/or kV according to patient size. COMPARISON: [facility], CT, CT CERVICAL SPINE WO CON, 11/07/2023, 16:22. FINDINGS: Image quality: Excellent. Bones: No fractures or dislocations. Visualized superior ribs are intact. Diffuse cervical spondylosis. Multilevel disc height loss and uncovertebral joint osteophytes. Multilevel foraminal narrowing. Soft tissues: Prevertebral soft tissues are normal in thickness. No paravertebral hematomas. No apical pneumothoraces. IMPRESSION: 1. No acute cervical fracture or dislocation. 2. Cervical spondylosis. Dictated by: Phan Griffin M.D. on 12/30/2023 at 7:56 Approved by: Phan Griffin M.D. on 12/30/2023 at 7:59
[2023-12-30 06:28] VITALS: BP 113/71; PULSE 89; RESP 16; TEMP 36.9; O2SAT 97; BMI 24.2
--- NOTE | 2023-12-30 06:30 | ED_ITS ---
HPI - General Adult <Catarina Diez DO - Last Filed: 12/31/23 03:48> General Chief complaint: Fall Stated complaint: GLF Time Seen by Provider: 12/30/23 06:27 Source: patient, EMS, RN notes reviewed and old records reviewed Mode of arrival: EMS Limitations: other (dementia, patient at baseline per EMS) History of Present Illness HPI narrative: 88-year-old Eliquis for DVT history of dementia who lives at [facility], patient presents with complaint of fall. Patient reportedly caught her foot on the edge of her door while walking out of her room. Did hit her head has obvious abrasions to her face and nose, has some skin tears on her upper extremities. Patient has complaint of little bit of headache for her abrasions on her head as as well as little bit of knee pain although she can fully move it. No reported loss of consciousness. Patient denies any neck pain, denies any back pain, denies any chest pain or shortness of breath. She denies any other GI or urinary symptoms. She describes little bit of pain in her knee. She can lift and move it without much issue. She does not have any pain in her hips. Patient is unsure of her medical history. She does not believe she has any allergies. Patient per EMS is A&O x1 reportedly at her baseline. Related Data Previous Rx's Medication Instructions Recorded apixaban 5 mg (74 tabs) tablets in 5 mg PO Q12H #74 ea 02/25/22 a dose pack (Natalia DVT-PE Treat 30D Start) Allergies Allergy/AdvReac Type Severity Reaction Status Date / Time No Allergy Information Allergy Verified 12/30/23 09:17 Available Review of Systems <Catarina Diez DO - Last Filed: 12/31/23 03:48> Review of Systems ROS Unobtainable: All systems reviewed & are unremarkable except as noted in HPI and below Patient History <Catarina Diez DO - Last Filed: 12/31/23 03:48> Social History Smoking Status: Former smoker Smoking Status: Former smoker alcohol intake frequency: other Substance Use Type: does not use Exam <Catarina Diez DO - Last Filed: 12/31/23 03:48> Narrative Exam Narrative: GEN: Patient appears in mild distress. Patient is pleasantly confused. Can tell me her name. HEAD: Patient has a abrasions of the forehead, small abrasion over the nose, small amount of ecchymosis underneath the left eye, no raccoon/Thomas sign. NECK: Nontender, painless range of motion, trachea midline Positive Nexus criteria, no midline line tenderness, distracting injury, positive for altered mental status other reported patient's baseline, no neuro deficit, recent EtOH. EYES: PERRLA, EOMI ENT: External inspection normal than above, trachea is midline, TM's are normal no hemotypanum, Nares are clear, no septal hematoma, no dental or oral injury, airway is normal and with normal occlusion, No bony tenderness RESP: Chest is nontender and has symmetric movement, no ecchymosis, breath sounds are normal no crackles, wheezes or rales, patient has a little bit of mild cough. CVS: Heart sounds are normal, no murmur noted, No JVD. ABG/GI: Nontender, soft, normal bowel sounds, no distention, no organomegaly, pelvic rock is negative NEURO: Oriented AOx3, neuro is grossly intact, sensation and motor is normal all 4 extremities moving, cranial nerves II through XII are intact, GCS is 14 PSYCH: Normal mood and affect SKIN: Patient has a skin tear of her left upper extremity, has multiple abrasions bilateral upper extremities. Warm and dry, no crepitus and without decubitus BACK: No CVA tenderness, no vertebral tenderness, no step-off's, no crepitus EXT: Atraumatic except for some mild discomfort with palpation of the knee, patient can flex and extend the knee without issue, patient has a a quite a bit of bony enlargement of bilateral knees. Hips are nontender, no pedal edema, normal color and temperature, normal range of motion of extremities with normal tendon exam, 2+ pulses in all four extremities Initial Vital Signs Initial Vital Signs: Vital Signs Temperature 98.5 F 12/30/23 06:28 Pulse Rate 89 12/30/23 06:28 Respiratory Rate 16 12/30/23 06:28 Blood Pressure 113/71 12/30/23 06:28 Pulse Oximetry 97 12/30/23 06:28 Oxygen Delivery Method Room Air 12/30/23 06:28 <Grey Curry MD - Last Filed: 12/31/23 11:11> Initial Vital Signs Initial Vital Signs: Vital Signs Temperature 98.5 F 12/30/23 06:28 Pulse Rate 89 12/30/23 06:28 Respiratory Rate 16 12/30/23 06:28 Blood Pressure 113/71 12/30/23 06:28 Pulse Oximetry 97 12/30/23 06:28 Oxygen Delivery Method Room Air 12/30/23 06:28 Course <Catarina Diez DO - Last Filed: 12/31/23 03:48> Orders Ordered: Discontinued Medications Bacitracin (Bacitracin Oint 0.9 Gm Pckt) 1 applic TOP NOW ONE Stop: 12/30/23 07:38 Last Admin: 12/30/23 07:43 Dose: 1 applic Documented By: CRYSTAL Vital Signs Vital signs: Vital Signs - 8 hr 12/30/23 06:28 12/30/23 08:50 Temperature 98.5 F Pulse Rate 89 96 H Respiratory Rate 16 Blood Pressure 113/71 115/77 Pulse Oximetry 97 98 Oxygen Delivery Method Room Air <Grey Curry MD - Last Filed: 12/31/23 11:11> Orders Ordered: Discontinued Medications Bacitracin (Bacitracin Oint 0.9 Gm Pckt) 1 applic TOP NOW ONE Stop: 12/30/23 07:38 Last Admin: 12/30/23 07:43 Dose: 1 applic Documented By: CRYSTAL Vital Signs Vital signs: Vital Signs - 8 hr 12/30/23 06:28 12/30/23 08:50 Temperature 98.5 F Pulse Rate 89 96 H Respiratory Rate 16 Blood Pressure 113/71 115/77 Pulse Oximetry 97 98 Oxygen Delivery Method Room Air Medical Decision Making <Catarina Diez DO - Last Filed: 12/31/23 03:48> MDM Narrative Medical decision making narrative: 88-year-old female reported mechanical ground level fall, is on Eliquis for prior DVT does have a history of dementia. Head CT CT C-spine Chest x-ray Knee x-ray Patient signed out to Dr. Curry while awaiting imaging. <Grey Curry MD - Last Filed: 12/31/23 11:11> Imaging Data CT scan - head: Radiologist's Impression: [address] [place] [address] CT Scan Report Signed Patient: Vivian Arshad MR#: [id number] : 1935 Acct:[id number] Age/Sex: 88 / F Date of Service: 12/30/23 Loc: ED Accession Number: [id number] Procedure: CT head/brain wo con Ordering Provider: Catarina Diez D.O. PROCEDURE: CT HEAD/BRAIN WO CON INDICATIONS: left knee pain, fall TECHNIQUE: Noncontrast 4.5 mm thick angled axial sections acquired from the foramen magnum to the vertex, with coronal and sagittal reformats. For radiation dose reduction, the following was used: automated exposure control, adjustment of mA and/or kV according to patient size. COMPARISON: [facility], CT, CT HEAD/BRAIN WO CON, 11/07/2023, 16:22. FINDINGS: Image quality: Diagnostic. CSF spaces: Basal cisterns are patent. No extra-axial fluid collections. The ventricles are symmetric in size and shape. Brain: No intracranial bleeds or masses. There is cerebral volume loss for age, with resultant ventricular and sulcal prominence. There are periventricular and deep white matter chronic small vessel ischemic changes. There is intracranial internal carotid artery atherosclerosis. Skull and face: Left forehead hematoma. Calvarium and visualized facial bones appear intact, without suspicious lesions. Sinuses: Air-fluid level, right maxillary sinus. Mucosal thickening, left maxillary sinus. Subtotal anterior left ethmoid and posterior right ethmoid opacification. Dependent soft tissue in the right sphenoid sinus. IMPRESSION: 1. No acute intracranial abnormality. 2. Left forehead hematoma. 3. Acute on chronic sinusitis. Comment: Final report is concordant with preliminary interpretation provided by [facility]. Dictated by: Phan Griffin M.D. on 12/30/2023 at 7:49 Approved by: Phan Griffin M.D. on 12/30/2023 at 7:50 CT - cervical spine: Radiologist's Impression: [address] [address] [address] Scan Report Signed Patient: Vivian Arshad MR#: [id number] : 1935 Acct:[id number] Age/Sex: 88 / F Date of Service: 12/30/23 Loc: ED Accession Number: [id number] Procedure: CT cervical spine wo con Ordering Provider: Catarina Diez D.O. PROCEDURE: CT CERVICAL SPINE WO CON INDICATIONS: left knee pain, fall TECHNIQUE: Noncontrast 3 mm thick sections acquired from the skull base to the T4 level. Sagittal and coronal reformats were then constructed. For radiation dose reduction, the following was used: automated exposure control, adjustment of mA and/or kV according to patient size. COMPARISON: [facility], CT, CT CERVICAL SPINE WO CON, 11/07/2023, 16:22. FINDINGS: Image quality: Excellent. Bones: No fractures or dislocations. Visualized superior ribs are intact. Diffuse cervical spondylosis. Multilevel disc height loss and uncovertebral joint osteophytes. Multilevel foraminal narrowing. Soft tissues: Prevertebral soft tissues are normal in thickness. No paravertebral hematomas. No apical pneumothoraces. IMPRESSION: 1. No acute cervical fracture or dislocation. 2. Cervical spondylosis. Dictated by: Phan Griffin M.D. on 12/30/2023 at 7:56 Approved by: Phan Griffin M.D. on 12/30/2023 at 7:59 Chest x-ray: Radiologist's Impression: [place] [address] XRay Report Signed Patient: Vivian Arshad MR#: [id number] : 1935 Acct:[id number] Age/Sex: 88 / F Date of Service: 12/30/23 Loc: ED Accession Number: [id number] Procedure: XR chest 1V Ordering Provider: Catarina Diez D.O. PROCEDURE: XR CHEST 1V INDICATIONS: fall TECHNIQUE: One view of the chest was acquired. COMPARISON: [facility], CR, XR CHEST 2V, 09/20/2022, 16:21. FINDINGS: Surgical changes and devices: None. Lungs and pleura: Lungs are clear. No pleural effusions or pneumothorax. Mediastinum: Mediastinal contours appear normal. Cardiomegaly. Bones and chest wall: No suspicious bony lesions. Overlying soft tissues appear unremarkable. IMPRESSION: Cardiomegaly. No evidence acute pulmonary process. Dictated by: Phan Griffin M.D. on 12/30/2023 at 9:30 Approved by: Phan Griffin M.D. on 12/30/2023 at 9:31 Extremity x-ray #1: Radiologist's Impression: [address] [address] XRay Report Signed Patient: Vivian Arshad MR#: [id number] : 1935 Acct:[id number] Age/Sex: 88 / F Date of Service: 12/30/23 Loc: ED Accession Number: [id number] Procedure: XR knee LT 1to2V Ordering Provider: Catarina Diez D.O. PROCEDURE: XR KNEE LT 1TO2V INDICATIONS: left knee pain, fall TECHNIQUE: 2 views of the knee were acquired. COMPARISON: [facility], JUST[place], XR KNEE RT 3V, 11/07/2023, 16:27. FINDINGS: Bones: No fractures or dislocations. No suspicious bony lesions. Moderate to severe tricompartment degenerative change, worst involving the patellofemoral joint. Soft tissues: No joint effusion. No suspicious soft tissue calcifications. IMPRESSION: Degenerative arthritis. No evidence acute bony abnormality. Dictated by: Phan Griffin M.D. on 12/30/2023 at 9:32 Approved by: Phan Griffin M.D. on 12/30/2023 at 9:33 MDM Narrative Medical decision making narrative: 88-year-old female reported mechanical ground level fall, is on Eliquis for prior DVT does have a history of dementia. Head CT left frontal hematoma, no intracranial hemorrhage. No fracture. CT C-spine no acute finding Chest x-ray no acute finding Knee x-ray no acute finding Patient signed out to Dr. Curry while awaiting imaging. 7:00 a.m.. Patricio: Sign out from Dr Diez, imaging is pending. Patient had mechanical fall. No blood work indicated. Patient is on Eliquis. Patient does have history of dementia. Exam is reassuring. 7:40 a.m.. Patient moving all 4 extremities without difficulty. Desire to go back to her home. There is bruising to the left patella but patient has full flexion-extension without any difficulty. Wound care provided for abrasion to the forehead. Return precautions reviewed. Calling for a ride to bring patient back to [facility]. Patient is in no distress. Pain is controlled. No midline tenderness step-off of the cervical thoracic lumbar spine. Clinically likely not bronchitis on x-ray chest, patient has no respiratory complaints or symptoms. Discharge Plan Departure Patient Disposition: Home Clinical Impression: Contusion of left knee, initial encounter Contusion of face Qualifiers: Encounter type: initial encounter Qualified Code(s): S00.83XA - Contusion of other part of head, initial encounter Instructions: DI for Contusion, DI for Closed Head Injury, DI for Abrasion Activity Restrictions/Additional Instructions: Please see family doctor this week for re-evaluation. May continue Tylenol for pain. Use cool packs to sore areas 20 minutes at time as needed for pain and swelling. May clean abrasions to the skin daily with warm soap and water and apply a thin layer of topical antibiotic. Return if worse if any questions or concerns Prescriptions: No Action Eliquis DVT-PE Treat 30D Start 5 mg (74 tabs) tablets,dose pack 5 mg PO Q12H Qty: 74 0RF Referrals: Alicia Pal ARNP [Primary Care Provider] - Stand Alone Forms: Patient Portal/API
[2023-12-30] MEDS: BACITRACIN OINT 0.9 GM PCKT 1 APPLIC TOP (07:43)
[2023-12-30 08:50] VITALS: BP 115/77; PULSE 96; O2SAT 98
== END 2023-12-30 10:00 | disposition home or self-care (01) ==
PROVIDERS: Emergency Provider Emergency Medicine; PCP Nurse Practitioner Family
DX: S00.81XA Abrasion of other part of head, initial encounter (principal); S00.31XA Abrasion of nose, initial encounter; S80.02XA Contusion of left knee, initial encounter; R51.9 Headache, unspecified; W18.30XA Fall on same level, unspecified, initial encounter; Z79.01 Long term (current) use of anticoagulants
CPT/HCPCS: 70450; 71045; 72125; 73560; 99282; 99284

== ENCOUNTER → 2024-03-09 16:50 | Outpatient (ROUT) | payer MEDICARE, MEDICAID, SELFPAY ==
[2024-03-09 17:07] LABS: Appearance Urine UA CLEAR; Bilirubin Urine UA NEGATIVE (NEGATIVE); Color Urine UA YELLOW; Glucose Urine UA NEGATIVE (Negative); Ketones Urine UA NEGATIVE (NEGATIVE); Leukocyte Esterase Urine UA TRACE (NEGATIVE); Nitrite Urine UA NEGATIVE (Negative); Occult Blood Urine UA NEGATIVE (Negative); Protein Urine UA NEGATIVE (Negative); Urobilinogen Urine UA 0.2 E.U./dL (0.2)
[2024-03-09 17:15] LABS: Amorphous Sediment Urine 1+; Bacteria Urine Occasional (0-1); Culture Indicated Urine Specimen Cultured; RBC Urine 0-1/HPF (0-5/HPF); Squamous Epithelial Cell Urine 5-10 /HPF (0-5/HPF); Urine Volume 10mL (spun); WBC Urine 5-10/HPF (0-5/HPF)
== END ==
PROVIDERS: PCP Nurse Practitioner Family; Visit Provider Nurse Practitioner Family
DX: Z13.89 Encounter for screening for other disorder (principal)
CPT/HCPCS: 81001; 87086

== ENCOUNTER → 2024-04-13 13:18 | Outpatient (ROUT) | payer MEDICARE, MEDICAID, SELFPAY ==
[2024-04-13 13:27] LABS: Appearance Urine UA CLEAR; Bilirubin Urine UA NEGATIVE (NEGATIVE); Color Urine UA YELLOW; Glucose Urine UA NEGATIVE (Negative); Ketones Urine UA NEGATIVE (NEGATIVE); Leukocyte Esterase Urine UA NEGATIVE (NEGATIVE); Nitrite Urine UA NEGATIVE (Negative); Occult Blood Urine UA NEGATIVE (Negative); Protein Urine UA NEGATIVE (Negative); Urobilinogen Urine UA 0.2 E.U./dL (0.2)
[2024-04-13 13:32] LABS: Urine Volume 10mL (spun); pH Urine UA 5.5 (4.5-8.0)
[2024-04-13 13:33] LABS: Bacteria Urine None Seen; Culture Indicated Urine Cult Not Indicated; RBC Urine None Seen (0-5/HPF); Squamous Epithelial Cell Urine None Seen (0-5/HPF); WBC Urine None Seen (0-5/HPF)
== END ==
PROVIDERS: PCP Nurse Practitioner Family; Visit Provider Registered Nurse
DX: R39.89 Other symptoms and signs involving the genitourinary system (principal)
CPT/HCPCS: 81001

== ENCOUNTER 2024-05-19 01:51 | Emergency (ER) | payer MEDICARE, MEDICAID, SELFPAY ==
[2024-05-19 01:54] VITALS: BP 119/77; PULSE 105; RESP 14; TEMP 36.3; O2SAT 98; BMI 31.6
--- NOTE | 2024-05-19 01:58 | DI.CT.S_ITS ---
PROCEDURE: CT HEAD/BRAIN WO CON INDICATIONS: witness fall, hit head + thinners, dementia TECHNIQUE: Noncontrast 4.5 mm thick angled axial sections acquired from the foramen magnum to the vertex, with coronal and sagittal reformats. For radiation dose reduction, the following was used: automated exposure control, adjustment of mA and/or kV according to patient size. COMPARISON: [facility], CT, CT HEAD/BRAIN WO CON, 12/30/2023, 6:35. FINDINGS: Image quality: Diagnostic. CSF spaces: Basal cisterns are patent. No extra-axial fluid collections. The ventricles are symmetric in size and shape. Brain: No intracranial bleeds or masses. There is cerebral volume loss for age, with resultant ventricular and sulcal prominence. There are periventricular and deep white matter chronic small vessel ischemic changes. There is intracranial internal carotid artery atherosclerosis. Skull and face: Small left frontal scalp hematoma. Calvarium and visualized facial bones appear intact, without suspicious lesions. Sinuses: Diffuse paranasal sinus mucosal thickening with subtotal anterior left ethmoid and posterior right ethmoid opacification. Air-fluid levels are noted. The mastoids are clear. IMPRESSION: No acute intracranial pathology. Findings are concordant with preliminary interpretation provided by [facility]. Dictated by: Hever Sullivan M.D. on 05/19/2024 at 7:42 Approved by: Hever Sullivan M.D. on 05/19/2024 at 7:45
--- NOTE | 2024-05-19 01:58 | DI.RAD.S_ITS ---
PROCEDURE: XR CHEST 1V INDICATIONS: witness fall, hit head + thinners, dementia TECHNIQUE: One view of the chest was acquired. COMPARISON: [facility], CR, XR CHEST 1V, 12/30/2023, 6:35. FINDINGS: Surgical changes and devices: None. Lungs and pleura: Lungs are clear. No pleural effusions or pneumothorax. Mediastinum: Mediastinal contours appear normal. Heart size is normal. Bones and chest wall: No suspicious bony lesions. High-grade right AC joint separation is noted with depression and overlapping at right acromioclavicular joint. Overlying soft tissues appear unremarkable. IMPRESSION: No acute cardiopulmonary pathology. Suggestion of high-grade right AC separation likely chronic in nature. No discrepancies. Dictated by: Vishal Miller M.D. on 05/19/2024 at 8:10 Approved by: Vishal Miller M.D. on 05/19/2024 at 8:11
--- NOTE | 2024-05-19 01:58 | DI.CT.S_ITS ---
PROCEDURE: CT CERVICAL SPINE WO CON INDICATIONS: witness fall, hit head + thinners, dementia TECHNIQUE: Noncontrast 3 mm thick sections acquired from the skull base to the T4 level. Sagittal and coronal reformats were then constructed. For radiation dose reduction, the following was used: automated exposure control, adjustment of mA and/or kV according to patient size. COMPARISON: [facility], CT, CT CERVICAL SPINE WO CON, 12/30/2023, 6:35. FINDINGS: Image quality: Excellent. Bones: No fractures or dislocations. Multilevel degenerative changes of the cervical spine. Decreased osseous mineralization. Visualized superior ribs are intact. Soft tissues: Prevertebral soft tissues are normal in thickness. No paravertebral hematomas. No apical pneumothoraces. IMPRESSION: No displaced fracture or traumatic subluxation. Findings are concordant with preliminary interpretation provided by [facility]. Dictated by: Hever Sullivan M.D. on 05/19/2024 at 7:46 Approved by: Hever Sullivan M.D. on 05/19/2024 at 7:52
[2024-05-19 02:00] VITALS: PULSE 120; O2SAT 97
--- NOTE | 2024-05-19 02:17 | ED_ITS ---
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 Patient had gotten up to go to the bathroom fell backwards and hit her head on a plastic trash can. No loss of consciousness. Patient is reportedly at her baseline. Patient herself does not have any complaints other than her left arm hurting where she had skin tear per EMS. Patient denies headache denies back pain or neck pain. No chest pain or shortness of breath. She denies any GI or urinary symptoms. She does have a cough that is somewhat wet but nonproductive in the room. She denies any difficulty with breathing. Patient is unsure if she takes any medications. She knows her name she [place] She was very pleasantly confused. She can lift and move everything without issue and no pain in her joints or extremities. No reported allergies. Related Data Previous Rx's Medication Instructions Recorded apixaban 5 mg (74 tabs) tablets in 5 mg PO Q12H #74 ea 02/25/22 a dose pack (Eliquis DVT-PE Treat 30D Start) Allergies Allergy/AdvReac Type Severity Reaction Status Date / Time No Allergy Information Allergy Verified 05/19/24 01:57 Available Review of Systems Review of Systems ROS Unobtainable: All systems reviewed & are unremarkable except as noted in HPI and below Patient History Social History Smoking Status: Former smoker Smoking Status: Former smoker alcohol intake frequency: other Exam Narrative Exam Narrative: GEN: Patient appears in mild distress. Patient was pleasantly confused. HEAD: No evidence of trauma, no raccoon/Thomas sign. NECK: Nontender, painless range of motion, trachea midline Negative Nexus criteria, no midline line tenderness, distracting injury, altered mental status, neuro deficit, recent EtOH. EYES: PERRLA, EOMI ENT: External inspection normal, trachea is midline, TM's are normal no hemotypanum, Nares are clear, no septal hematoma, no dental or oral injury, airway is normal and with normal occlusion, No bony tenderness RESP: Chest is nontender and has symmetric movement, no ecchymosis, breath sounds are normal no crackles, wheezes or rales CVS: Heart sounds are normal, no murmur noted, No JVD. ABG/GI: Nontender, soft, normal bowel sounds, no distention, no organomegaly, pelvic rock is negative NEURO: Oriented AOx3, neuro is grossly intact, sensation and motor is normal all 4 extremities moving, cranial nerves II through XII are intact, GCS is 14 PSYCH: Normal mood and affect SKIN: Patient has a large skin tear on her left forearm proximally 4 cm at its maximum dimension by 3 cm avulsion skin tear. Warm and dry, no crepitus and without decubitus BACK: No CVA tenderness, no vertebral tenderness, no step-off's, no crepitus EXT: Atraumatic other than skin tear no tenderness on exam. Hips are nontender, no pedal edema, normal color and temperature, normal range of motion of extremities with normal tendon exam, 2+ pulses in all four extremities Initial Vital Signs Initial Vital Signs: Vital Signs Temperature 97.4 F L 05/19/24 01:54 Pulse Rate 105 H 05/19/24 01:54 Respiratory Rate 14 05/19/24 01:54 Blood Pressure 119/77 05/19/24 01:54 Pulse Oximetry 98 05/19/24 01:54 Oxygen Delivery Method Room Air 05/19/24 01:54 Course Orders Ordered: ED Orders 05/19/24 01:58 CT cervical spine wo con Stat CT head/brain wo con Stat Chest [XR chest 1V] Stat 05/19/24 02:01 Covid-19 + FLU A/B + RSV - PCR Stat Discontinued Medications Bacitracin (Bacitracin Oint 0.9 Gm Pckt) 1 applic TOP NOW ONE Stop: 05/19/24 01:59 Last Admin: 05/19/24 02:32 Dose: 1 applic Documented By: GRAZYNA Diphtheria/Tetanus/Acell Pertussis (Tet,Diph,Pertuss(Acell),Vac/Pf 0.5 Ml Syringe) 0.5 ml IM .ONCE ONE Stop: 05/19/24 01:59 Last Admin: 05/19/24 02:27 Dose: 0.5 ml Documented By: GRAZYNA Vital Signs Vital signs: Vital Signs - 8 hr 05/19/24 01:54 05/19/24 02:00 05/19/24 02:30 Temperature 97.4 F L Pulse Rate 105 H 120 H 134 H Respiratory Rate 14 Blood Pressure 119/77 Pulse Oximetry 98 97 98 Oxygen Delivery Method Room Air Room Air Room Air 05/19/24 02:45 Temperature Pulse Rate 129 H Respiratory Rate Blood Pressure 112/67 Pulse Oximetry 98 Oxygen Delivery Method Room Air MDM - Fall Lab Data Labs: Lab Results 05/19/24 Range/Units 02:01 SARS-CoV-2 (PCR) Negative (Negative) Influenza A (RT-PCR) Flu a negative (NEGATIVE) Influenza B (RT-PCR) Flu b negative (NEGATIVE) RSV (PCR) Negative (Negative) MDM Narrative Medical decision making narrative: 88-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 Patient was at her baseline per EMS. Does have a bit of a wet cough but otherwise well-appearing. Also has a skin tear on her left forearm. Based on age and anticoagulation head CT and CT cervical spine were obtained, chest x-ray was also included as patient is coughing so COVID/influenza/RSV swab was obtained as well. Head CT no fracture intracranial hemorrhage unchanged senescent findings unchanged. Nasal sinus disease. CT cervical spine shows no fracture [id number] multilevel degenerative changes hemangioma seen again with the T1 vertebral body measuring 15 mm in size. Patient's degenerative change unchanged compared to prior study. No apical pneumothorax ever airways patent. Chest x-ray, no focal infiltrate superior elevation distal right clavicle in relation to the distal acromion by 15 mm coracoclavicular distance is increased to 17 mm likely chronic grade 3 right shoulder separation. COVID/influenza/RSV negative. Patient had bacitracin applied to his her skin tear with bandage. Tetanus was updated. Discharge Plan Departure Patient Disposition: Home Clinical Impression: Skin tear of left forearm without complication, Fall Instructions: DI for Closed Head Injury Activity Restrictions/Additional Instructions: You have a skin tear on your left forearm. Keep wound(s) clean and dry. Wash daily with soap and water only. Do not use over the counter products (alcohol or peroxide)on the wounds unless instructed by a physician. You may use triple antibiotic ointment to the affected area daily. If wound condition worsens (increased/expanding redness, developing fluid blisters, or worsening pain), either contact your doctor for an urgent re- assessment , or return to the Emergency Department. Return if fever greater than 100.4 Fahrenheit, increased swelling, increasing pain or worsening symptoms such as increased discharge or spreading redness. Severe headaches, neck pain, sudden changes in mentation, chest pain or shortness of breath, persistent vomiting or other new or concerning changes. Prescriptions: No Action Eliquis DVT-PE Treat 30D Start 5 mg (74 tabs) tablets,dose pack 5 mg PO Q12H Qty: 74 0RF Referrals: Alicia Pal ARNP [Primary Care Provider] - Stand Alone Forms: Patient Portal/API/Survey
[2024-05-19] MEDS: TET,DIPH,PERTUSS(ACELL),VAC/PF 0.5 ML SYRINGE IM (02:27)
[2024-05-19 02:30] VITALS: PULSE 134; O2SAT 98
[2024-05-19] MEDS: BACITRACIN OINT 0.9 GM PCKT 1 APPLIC TOP (02:32)
[2024-05-19 02:41] LABS: Influenza A - CEPHEID Flu A NEGATIVE (NEGATIVE); Influenza B - CEPHEID Flu B NEGATIVE (NEGATIVE); Respiratory Syncytial Virus Negative (Negative)
[2024-05-19 02:45] VITALS: BP 112/67; PULSE 129; O2SAT 98
--- NOTE | 2024-05-19 02:50 | PC.NURSE ---
Modified trauma called at 0152 for witnessed fall on thinners, no loc, per EMS fall was mechanical trip/slip on the way back from the bathroom, hit head on plastic trash can. EMS unable to provide pre hospital vitals. Patient is pleasantly confused at baseline, lives at [facility]. Left forearm skin tear 6cm in length, baci and non adherent applied. no other injuries noted. Patient has respiratory illness, coughing up green phlegm, left side coarse crackles on inspiration, provider ordered 4pack. Charge nurse Tianna with this RN because she does not have her [facility]
[2024-05-19 02:54] LABS: COVID-19 CEPHEID 4-PLEX PCR Negative (Negative)
--- NOTE | 2024-05-19 03:30 | PC.NURSE ---
[facility] called to get transportation back home. Facility states they are unable to come get their patient. BLS transportation not an option till 0845. Family attempted and unable to come get patient. Family also expressing frustration stating the facility usually can come get her. Awaiting call back from [facility].
== END 2024-05-19 06:52 | disposition home or self-care (01) ==
PROVIDERS: Emergency Provider Emergency Medicine; PCP Nurse Practitioner Family
DX: S51.812A Laceration without foreign body of left forearm, initial encounter (principal); R05.9 Cough, unspecified; R41.0 Disorientation, unspecified; W18.30XA Fall on same level, unspecified, initial encounter; Z86.718 Personal history of other venous thrombosis and embolism; Z79.01 Long term (current) use of anticoagulants; Z23 Encounter for immunization
CPT/HCPCS: 0241U; 70450; 71045; 72125; 90471; 99284; 90715

== ENCOUNTER → 2024-07-11 08:59 | Outpatient (ROUT) | payer MEDICARE, MEDICAID, SELFPAY ==
[2024-07-11 09:09] LABS: Appearance Urine UA CLOUDY; Bilirubin Urine UA NEGATIVE (NEGATIVE); Color Urine UA YELLOW; Glucose Urine UA NEGATIVE (Negative); Ketones Urine UA NEGATIVE (NEGATIVE); Leukocyte Esterase Urine UA 2+ (NEGATIVE); Nitrite Urine UA POSITIVE (Negative); Occult Blood Urine UA 2+ (Negative); Protein Urine UA TRACE (Negative); Specific Gravity Urine UA 1.025 (1.000-1.035); Urobilinogen Urine UA 0.2 E.U./dL (0.2); pH Urine UA 5.5 (4.5-8.0)
[2024-07-11 09:11] LABS: Urine Volume 10mL (spun)
[2024-07-11 09:14] LABS: Bacteria Urine Many (>30); Culture Indicated Urine Specimen Cultured; RBC Urine 5-10/HPF (0-5/HPF); Squamous Epithelial Cell Urine None Seen (0-5/HPF); WBC Urine 30-100/HPF (0-5/HPF)
== END ==
PROVIDERS: PCP Nurse Practitioner Family; Visit Provider Registered Nurse
DX: Z13.89 Encounter for screening for other disorder (principal)
CPT/HCPCS: 81001; 87077; 87086; 87186

== ENCOUNTER 2024-07-15 11:14 | Emergency (ER) | payer MEDICARE, MEDICAID, SELFPAY ==
[2024-07-15] VITALS (8 sets, daily range): BP systolic 105–122; BP diastolic 68–89; PULSE 137–156; RESP 19–31; TEMP 36.4; O2SAT 92–98
--- NOTE | 2024-07-15 11:33 | DI.RAD.S_ITS ---
PROCEDURE: XR ELBOW RT MIN 3V INDICATIONS: pain TECHNIQUE: 3 views of the elbow were acquired. COMPARISON: None. FINDINGS: Bones: No fractures or dislocations. No suspicious bony lesions. Soft tissues: Minimal to mild elbow joint effusion. No suspicious soft tissue calcifications. IMPRESSION: No visualized acute fracture or dislocation. However, if clinical concern and/or pain persist, short interval imaging followup in 7-10 days is recommended, as occult injury cannot be definitively excluded. Dictated by: Yarelis Stanley M.D. on 07/15/2024 at 12:35 Approved by: Yarelis Stanley M.D. on 07/15/2024 at 12:36
--- NOTE | 2024-07-15 11:33 | DI.CT.S_ITS ---
PROCEDURE: CT CERVICAL SPINE WO CON INDICATIONS: fall TECHNIQUE: Noncontrast 3 mm thick sections acquired from the skull base to the T4 level. Sagittal and coronal reformats were then constructed. For radiation dose reduction, the following was used: automated exposure control, adjustment of mA and/or kV according to patient size. COMPARISON: [facility], CT, CT CERVICAL SPINE WO CON, 05/19/2024, 2:02. FINDINGS: Image quality: Excellent. Bones: No fractures or dislocations. Visualized superior ribs are intact. The of degenerative changes. Soft tissues: Prevertebral soft tissues are normal in thickness. No paravertebral hematomas. No apical pneumothoraces. IMPRESSION: No visualized fracture. Dictated by: Yarelis Stanley M.D. on 07/15/2024 at 11:52 Approved by: Yarelis Stanley M.D. on 07/15/2024 at 11:53
--- NOTE | 2024-07-15 11:33 | DI.RAD.S_ITS ---
PROCEDURE: XR KNEE LT 3V INDICATIONS: Fall/pain TECHNIQUE: 3 views of the knee were acquired. COMPARISON: [facility], , XR KNEE LT 1TO2V, 12/30/2023, 6:35. FINDINGS: Bones: No fractures or dislocations. No suspicious bony lesions. Overall moderate to severe tricompartmental arthritic change most severe medially. Lateral patellar subluxation. Soft tissues: No joint effusion. No suspicious soft tissue calcifications. IMPRESSION: Tricompartmental arthritic change. Dictated by: Yarelis Stanley M.D. on 07/15/2024 at 12:36 Approved by: Yarelis Stanley M.D. on 07/15/2024 at 12:36
--- NOTE | 2024-07-15 11:33 | DI.RAD.S_ITS ---
PROCEDURE: XR HAND RT MIN 3V INDICATIONS: Pain/injury/middle finger TECHNIQUE: 3 views of the hand(s) acquired. COMPARISON: None. FINDINGS: Bones: No fractures or dislocations. Carpal bones are normally aligned. No suspicious bony lesions. 1st CMC and prominent IP degenerative narrowing. Periarticular osteophytes and subchondral sclerosis are present. Soft tissues: No suspicious soft tissue calcifications. IMPRESSION: Diffuse arthritic changes. No visualized acute fracture or dislocation. However, if clinical concern and/or pain persist, short interval imaging followup in 7-10 days is recommended, as occult injury cannot be definitively excluded. Dictated by: Yarelis Stanley M.D. on 07/15/2024 at 12:10 Approved by: Yarelis Stanley M.D. on 07/15/2024 at 12:12
--- NOTE | 2024-07-15 11:33 | DI.RAD.S_ITS ---
PROCEDURE: XR KNEE RT 3V INDICATIONS: Fall/pain TECHNIQUE: 3 views of the knee were acquired. COMPARISON: [facility], CR, XR KNEE LT 1TO2V, 12/30/2023, 6:35. FINDINGS: Bones: No fractures or dislocations. No suspicious bony lesions. Moderate to severe tricompartmental arthritic change most severe medially. Subchondral sclerosis and periarticular osteophytes are present. Soft tissues: Mild joint effusion. No suspicious soft tissue calcifications. IMPRESSION: Mild effusion. No visualized acute fracture or dislocation. However, if clinical concern and/or pain persist, short interval imaging followup in 7-10 days is recommended, as occult injury cannot be definitively excluded. Tricompartmental arthritic change. Dictated by: Yarelis Stanley M.D. on 07/15/2024 at 12:36 Approved by: Yarelis Stanley M.D. on 07/15/2024 at 12:37
--- NOTE | 2024-07-15 11:35 | ED.FALL ---
HPI - Fall General Chief Complaint: Fall Stated Complaint: GLF X 3 Time Seen by Provider: 07/15/24 11:32 History of Present Illness HPI Narrative: Patient brought in by ambulance from half-way. Patient is DNR with comfort measures only. I spoke with power of finance attorney, daughter, Karely gurrola, she does not not want any EKG, monitor does show possible atrial fibrillation heart rate 150. She does not want blood work done. She does want to CT imaging without contrast and x-rays. Patient had fall yesterday as well as today. She states her mother would not want any cardiac workup. Patient in no distress. Denies any pain at this time. EMS reports she possibly hit her head today on the ground. Unknown loss of consciousness. She is awake alert oriented self and following instructions very well. Is not agitated or combative. Related Data Previous Rx's Medication Instructions Recorded apixaban 5 mg (74 tabs) tablets in 5 mg PO Q12H #74 ea 02/25/22 a dose pack (EliHIGH MOBILITY DVT-PE Treat 30D Start) Allergies Allergy/AdvReac Type Severity Reaction Status Date / Time No Allergy Information Allergy Verified 05/19/24 01:57 Available Review of Systems Review of Systems Narrative: GENERAL: Negative chills, fatigue, malaise, fever, sweats. HEENT: Negative sinus pain, ear pain, sore throat RESPIRATORY: Negative dyspnea, cough CARDIOVASCULAR: Negative chest pain, palpitations GASTROINTESTINAL: Negative nausea, vomiting, abdominal pain : Negative dysuria, frequency, hematuria MUSCULOSKELETAL: Positive muscle or bony pain SKIN: Negative rash, skin lesions, positive skin wound NEUROLOGIC: Negative weakness, numbness ROS Unobtainable: All systems reviewed & are unremarkable except as noted in HPI and below Patient History Social History Smoking Status: Former smoker Smoking Status: Former smoker alcohol intake frequency: other Exam Narrative Exam Narrative: GENERAL: in no distress, not toxic not dyspneic HEAD: Normocephalic. Nontender scalp and skull. No crepitus or step-off or contusion or bruising EYES: Pupils equal round ENT: Mucous membranes moist. NECK: Trachea midline. Patient log rolled. No midline tenderness step-off of the cervical thoracic or lumbar spine. No skin injury seen on the back. CARDIOVASCULAR: Regular rate and rhythm RESPIRATORY: Clear to auscultation. Breath sounds equal bilaterally. No wheezes, rales, or rhonchi. GASTROINTESTINAL: Abdomen soft, non-tender EXTREMITIES: No gross deformities. Nontender bilateral shoulders elbows wrists pelvis hips knees and ankles. Bruising seen on bilateral patellar able to flex and extend fully. There is bruising to the right middle finger with limited flexion-extension due to pain and swelling. Skin is intact. BACK: No flank tenderness. NEURO: AOx2. Clear speech SKIN: Warm and dry PSYCH: Not anxious, is cooperative Initial Vital Signs Initial Vital Signs: Vital Signs Pulse Rate 156 H 07/15/24 11:24 Blood Pressure 119/87 07/15/24 11:24 Pulse Oximetry 97 07/15/24 11:24 Course Orders Ordered: Discontinued Medications Bacitracin (Bacitracin Oint 0.9 Gm Pckt) 1 applic TOP NOW ONE Stop: 07/15/24 11:37 Last Admin: 07/15/24 12:10 Dose: 1 applic Documented By: GRAZYNA Diphtheria/Tetanus/Acell Pertussis (Tet,Diph,Pertuss(Acell),Vac/Pf 0.5 Ml Syringe) 0.5 ml IM .ONCE ONE Stop: 07/15/24 11:33 Last Admin: 07/15/24 12:05 Dose: 0.5 ml Documented By: GRAZYNA Vital Signs Vital signs: Vital Signs - 8 hr 07/15/24 11:24 07/15/24 11:24 07/15/24 11:28 Temperature 97.6 F Pulse Rate 156 H 147 H Respiratory Rate 20 Blood Pressure 119/87 122/89 Pulse Oximetry 97 98 Oxygen Delivery Method Room Air 07/15/24 11:30 07/15/24 11:30 07/15/24 12:04 Temperature Pulse Rate 153 H 152 H Respiratory Rate 31 H 19 Blood Pressure 122/89 Pulse Oximetry 97 92 Oxygen Delivery Method 07/15/24 12:30 07/15/24 12:31 07/15/24 12:31 Temperature Pulse Rate 148 H 137 H Respiratory Rate Blood Pressure 110/68 Pulse Oximetry 94 Oxygen Delivery Method MDM - Fall Imaging Data CT scan - head: Radiologist's Impression: [address] [address] [address] Scan Report Signed Patient: Vivian Arshad MR#: [id number] : 1935 Acct:[id number] Age/Sex: 88 / F Date of Service: 07/15/24 Loc: ED Accession Number: [id number] Procedure: CT head/brain wo con Ordering Provider: Grey Curry MD PROCEDURE: CT HEAD/BRAIN WO CON INDICATIONS: fall TECHNIQUE: Noncontrast 4.5 mm thick angled axial sections acquired from the foramen magnum to the vertex, with coronal and sagittal reformats. For radiation dose reduction, the following was used: automated exposure control, adjustment of mA and/or kV according to patient size. COMPARISON: [facility], CT, CT HEAD/BRAIN WO CON, 05/19/2024, 2:02. FINDINGS: Image quality: Diagnostic. CSF spaces: Basal cisterns are patent. No extra-axial fluid collections. The ventricles are symmetric in size and shape. Brain: No intracranial bleeds or masses. There is cerebral volume loss for age, with resultant ventricular and sulcal prominence. There are periventricular and deep white matter chronic small vessel ischemic changes. There is intracranial internal carotid artery atherosclerosis. Skull and face: Calvarium and visualized facial bones appear intact, without suspicious lesions. Sinuses: Visualized sinuses there demonstrate scattered mucosal thickening. IMPRESSION: 1. No acute intracranial process. 2. Moderate atrophy and chronic microvascular ischemic changes. Dictated by: Yarelis Stanley M.D. on 07/15/2024 at 11:50 Approved by: Yarelis Stanley M.D. on 07/15/2024 at 11:51 CT chest abdomen and pelvis: Radiologist's Impression: [place] [address] CT Scan Report Signed Patient: Vivian Arshad MR#: [id number] : 1935 Acct:[id number] Age/Sex: 88 / F Date of Service: 07/15/24 Loc: ED Accession Number: [id number] Procedure: CT chest abd pel wo con Ordering Provider: Grey Curry MD PROCEDURE: CT CHEST ABD PEL WO CON INDICATIONS: Fall/injury TECHNIQUE: After the administration of oral contrast, 5 mm thick sections acquired from the lung apices to the symphysis pubis. 5 mm thick coronal and sagittal reformats acquired, with additional 7 mm coronal MIP reformats through the lungs. For radiation dose reduction, the following was used: automated exposure control, adjustment of mA and/or kV according to patient size. COMPARISON: None. FINDINGS: Image quality: Diagnostic. CHEST: Lower Neck: No enlarged lymph nodes. Thyroid: No thyroid nodules which require sonographic follow up, per consensus guidelines. Axillae: No enlarged lymph nodes. Chest Wall: Unremarkable. Bones: Unremarkable. Lungs and Pleura: No pneumothorax or pleural effusions. No consolidation or suspicious nodules. Heart: Heart size is normal. Mild pericardial effusion. Thoracic Vessels: The aorta and pulmonary arteries demonstrate normal size. Mediastinum and Rosaline: No enlarged lymph nodes. Esophagus: No wall thickening. No hiatal hernia. ABDOMEN: Liver: No solid mass. Gallbladder: No radiopaque gallstones or wall thickening. Biliary ducts: No biliary dilation. Pancreas: No ductal dilation. Spleen: Size is within normal limits. Adrenal Glands: Bilateral adrenal nodules. Hounsfield units range 0 to 3. Kidneys and Ureters: No hydronephrosis. No solid mass. No complex renal cystic lesion which requires follow up. Stomach and Bowel: Normal colonic caliber, without significant wall thickening. Peritoneum: No abnormal intraperitoneal fluid. No free air. Ventral Wall: No hernia. Abdominal Nodes: No retroperitoneal or mesenteric adenopathy by size criteria. Vessels: Aorta and inferior vena cava are normal in size. PELVIS: Pelvic Organs: Unremarkable. Bladder: Unremarkable. Pelvic Nodes: No enlarged lymph nodes. Miscellaneous: No inguinal hernias are seen. Bones: No aggressive osseous abnormality. IMPRESSION: No acute intra-abdominal or pelvic process. 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 Mild pericardial effusion. Dictated by: Yarelis Stanley M.D. on 07/15/2024 at 12:12 Approved by: Yarelis Stanley M.D. on 07/15/2024 at 12:21 Extremity x-ray #1: Radiologist's Impression: [address] [address] XRay Report Signed Patient: Vivian Arshad MR#: [id number] : 1935 Acct:[id number] Age/Sex: 88 / F Date of Service: 07/15/24 Loc: ED Accession Number: [id number] Procedure: XR knee RT 3V Ordering Provider: Grey Curry MD PROCEDURE: XR KNEE RT 3V INDICATIONS: Fall/pain TECHNIQUE: 3 views of the knee were acquired. COMPARISON: [facility], XR KNEE LT 1TO2V, 12/30/2023, 6:35. FINDINGS: Bones: No fractures or dislocations. No suspicious bony lesions. Moderate to severe tricompartmental arthritic change most severe medially. Subchondral sclerosis and periarticular osteophytes are present. Soft tissues: Mild joint effusion. No suspicious soft tissue calcifications. IMPRESSION: Mild effusion. No visualized acute fracture or dislocation. However, if clinical concern and/or pain persist, short interval imaging followup in 7-10 days is recommended, as occult injury cannot be definitively excluded. Tricompartmental arthritic change. Dictated by: Yarelis Stanley M.D. on 07/15/2024 at 12:36 Approved by: Yarelis Stanley M.D. on 07/15/2024 at 12:37 Extremity x-ray #2: Radiologist's Impression: [address] [address] XRay Report Signed Patient: Vivian Arshad MR#: [id number] : 1935 Acct:[id number] Age/Sex: 88 / F Date of Service: 07/15/24 Loc: ED Accession Number: [id number] Procedure: XR knee LT 3V Ordering Provider: Grey Curry MD PROCEDURE: XR KNEE LT 3V INDICATIONS: Fall/pain TECHNIQUE: 3 views of the knee were acquired. COMPARISON: [facility], XR KNEE LT 1TO2V, 12/30/2023, 6:35. FINDINGS: Bones: No fractures or dislocations. No suspicious bony lesions. Overall moderate to severe tricompartmental arthritic change most severe medially. Lateral patellar subluxation. Soft tissues: No joint effusion. No suspicious soft tissue calcifications. IMPRESSION: Tricompartmental arthritic change. Dictated by: Yarelis Stanley M.D. on 07/15/2024 at 12:36 Approved by: Yarelis Stanley M.D. on 07/15/2024 at 12:36 Extremity x-ray #3: Radiologist's Impression: [address] [address] XRay Report Signed Patient: Vivian Arshad MR#: [id number] : 1935 Acct:[id number] Age/Sex: 88 / F Date of Service: 07/15/24 Loc: ED Accession Number: [id number] Procedure: XR hand RT min 3V Ordering Provider: Grey Curry MD PROCEDURE: XR HAND RT MIN 3V INDICATIONS: Pain/injury/middle finger TECHNIQUE: 3 views of the hand(s) acquired. COMPARISON: None. FINDINGS: Bones: No fractures or dislocations. Carpal bones are normally aligned. No suspicious bony lesions. 1st CMC and prominent IP degenerative narrowing. Periarticular osteophytes and subchondral sclerosis are present. Soft tissues: No suspicious soft tissue calcifications. IMPRESSION: Diffuse arthritic changes. No visualized acute fracture or dislocation. However, if clinical concern and/or pain persist, short interval imaging followup in 7-10 days is recommended, as occult injury cannot be definitively excluded. Dictated by: Yarelis Stanley M.D. on 07/15/2024 at 12:10 Approved by: Yarelis Stanley M.D. on 07/15/2024 at 12:12 Extremity x-ray 4.: Radiologist's Impression: [address] [address] XRay Report Signed Patient: Vivian Arshad MR#: [id number] : 1935 Acct:[id number] Age/Sex: 88 / F Date of Service: 07/15/24 Loc: ED Accession Number: [id number] Procedure: XR elbow RT min 3V Ordering Provider: Grey Curry MD PROCEDURE: XR ELBOW RT MIN 3V INDICATIONS: pain TECHNIQUE: 3 views of the elbow were acquired. COMPARISON: None. FINDINGS: Bones: No fractures or dislocations. No suspicious bony lesions. Soft tissues: Minimal to mild elbow joint effusion. No suspicious soft tissue calcifications. IMPRESSION: No visualized acute fracture or dislocation. However, if clinical concern and/or pain persist, short interval imaging followup in 7-10 days is recommended, as occult injury cannot be definitively excluded. Dictated by: Yarelis Stanley M.D. on 07/15/2024 at 12:35 Approved by: Yarelis Stanley M.D. on 07/15/2024 at 12:36 CT - cervical spine: Radiologist's Impression: [address] [address] [address] Scan Report Signed Patient: Vivian Arshad MR#: [id number] : 1935 Acct:[id number] Age/Sex: 88 / F Date of Service: 07/15/24 Loc: ED Accession Number: [id number] Procedure: CT cervical spine wo con Ordering Provider: Grey Curry MD PROCEDURE: CT CERVICAL SPINE WO CON INDICATIONS: fall TECHNIQUE: Noncontrast 3 mm thick sections acquired from the skull base to the T4 level. Sagittal and coronal reformats were then constructed. For radiation dose reduction, the following was used: automated exposure control, adjustment of mA and/or kV according to patient size. COMPARISON: [facility], CT, CT CERVICAL SPINE WO CON, 05/19/2024, 2:02. FINDINGS: Image quality: Excellent. Bones: No fractures or dislocations. Visualized superior ribs are intact. The of degenerative changes. Soft tissues: Prevertebral soft tissues are normal in thickness. No paravertebral hematomas. No apical pneumothoraces. IMPRESSION: No visualized fracture. Dictated by: Yarelis Stanley M.D. on 07/15/2024 at 11:52 Approved by: Yarelis Stanley M.D. on 07/15/2024 at 11:53 [facility] Narrative Medical decision making narrative: Patient brought in by ambulance from half-way. Patient is DNR with comfort measures only. I spoke with power of finance attorney, daughter, Karely gurrola, she does not not want any EKG, monitor does show possible atrial fibrillation heart rate 150. She does not want blood work done. She does want to CT imaging without contrast and x-rays. Patient had fall yesterday as well as today. She states her mother would not want any cardiac workup. Patient in no distress. Denies any pain at this time. EMS reports she possibly hit her head today on the ground. Unknown loss of consciousness. She is awake alert oriented self and following instructions very well. Is not agitated or combative. After history and exam, I spoke with daughter, she does not not want an EKG or blood work. Risk of AFib and stroke and worsening symptoms reviewed with her and she is does agree and understand my discussion and only wants CT scan imaging and x-rays for trauma. No blood work. No cardiac workup. Bruising to right middle finger bruising to bilateral patella, with full active range of motion. Skin tear right elbow MDM Medical records reviewed: No recent visit for this complaint Differential considered: Includes but not limited to skull fracture intracranial bleed elbow skin tear/strain sprain contusion/fracture/dislocation, knee contusion/fracture, finger contusion/fracture Imaging studies independently reviewed: CT head cervical spine chest abdomen pelvis no acute finding, x-rays right elbow hand and bilateral knees no acute finding Treatments: Tdap, wound care Re-evaluations: 1:30 p.m.. Updated daughter, Karely, [id number] results. Again, she does not want any blood work or EKG done. Just x-ray and CT scan imaging. Return precautions reviewed. She would like mother discharge back home. Re-evaluation of patient, she is awake alert interactive. Smiling. Discussion: Appropriate for discharge home. I did contact [id number]. No further workup desired by [id number] other than x-rays and CT scans. Diagnosis: Contusion skin tear Discharge Plan Departure Patient Disposition: Home Clinical Impression: Skin tear Finger sprain Qualifiers: Encounter type: initial encounter Finger: middle finger Sprain of finger site: unspecified site Laterality: right Qualified Code(s): S63.612A - Unspecified sprain of right middle finger, initial encounter Contusion of knee Qualifiers: Encounter type: initial encounter Laterality: unspecified laterality Qualified Code(s): S80.00XA - Contusion of unspecified knee, initial encounter Instructions: DI for Contusion, How to Prevent Falls Activity Restrictions/Additional Instructions: Exam and imaging studies are reassuring today. Please change elbow dressing daily with warm soap and water and apply thin layer of topical antibiotic. Continue home medications. See primary care provider next week for re-evaluation. Return if worse if any questions or concerns. May continue Tylenol for pain. Prescriptions: No Action Eliquis DVT-PE Treat 30D Start 5 mg (74 tabs) tablets,dose pack 5 mg PO Q12H Qty: 74 0RF Referrals: Alicia Pal ARNP [Primary Care Provider] - Stand Alone Forms: Patient Portal/API/Survey
--- NOTE | 2024-07-15 11:36 | PC.NURSE ---
Provider was at patient bedside upon arrival and performed skin check with this RN and a technician terminal and repeater. Noted right middle finger bruising, right elbow skin tear, and bilateral knee bruising. Primary nurse informed.
--- NOTE | 2024-07-15 11:40 | DI.CT.S_ITS ---
PROCEDURE: CT HEAD/BRAIN WO CON INDICATIONS: fall TECHNIQUE: Noncontrast 4.5 mm thick angled axial sections acquired from the foramen magnum to the vertex, with coronal and sagittal reformats. For radiation dose reduction, the following was used: automated exposure control, adjustment of mA and/or kV according to patient size. COMPARISON: [facility], CT, CT HEAD/BRAIN WO CON, 05/19/2024, 2:02. FINDINGS: Image quality: Diagnostic. CSF spaces: Basal cisterns are patent. No extra-axial fluid collections. The ventricles are symmetric in size and shape. Brain: No intracranial bleeds or masses. There is cerebral volume loss for age, with resultant ventricular and sulcal prominence. There are periventricular and deep white matter chronic small vessel ischemic changes. There is intracranial internal carotid artery atherosclerosis. Skull and face: Calvarium and visualized facial bones appear intact, without suspicious lesions. Sinuses: Visualized sinuses there demonstrate scattered mucosal thickening. IMPRESSION: 1. No acute intracranial process. 2. Moderate atrophy and chronic microvascular ischemic changes. Dictated by: Yarelis Stanley M.D. on 07/15/2024 at 11:50 Approved by: Yarelis Stanley M.D. on 07/15/2024 at 11:51
[2024-07-15] MEDS: TET,DIPH,PERTUSS(ACELL),VAC/PF 0.5 ML SYRINGE IM (12:05)
[2024-07-15] MEDS: BACITRACIN OINT 0.9 GM PCKT 1 APPLIC TOP (12:10)
--- NOTE | 2024-07-15 12:48 | PC.NURSE ---
skin tear to right elbow, cleaned the wound with saline and applied bacitracin, non adherent pad and wrapped with gauze. Patient is oriented to self but otherwise pleasantly confused and cooperative. Heart rate is in the 140's, provider Brennick is aware and POA wants limited interventions
== END 2024-07-15 13:53 | disposition home or self-care (01) ==
PROVIDERS: Emergency Provider Emergency Medicine; PCP Nurse Practitioner Family
DX: S63.612A Unspecified sprain of right middle finger, initial encounter (principal); S80.01XA Contusion of right knee, initial encounter; S29.9XXA Unspecified injury of thorax, initial encounter; M54.2 Cervicalgia; M25.561 Pain in right knee; W19.XXXA Unspecified fall, initial encounter; Z23 Encounter for immunization; Z79.01 Long term (current) use of anticoagulants
CPT/HCPCS: 70450; 71250; 72125; 73080; 73130; 73562; 74176; 90471; 99283; 99284; 90715

== ENCOUNTER → 2024-11-02 05:57 | Outpatient (ROUT) | payer MEDICARE, MEDICAID, SELFPAY ==
[2024-11-02 08:40] LABS: Hematocrit 39.4 % (36-46); Hemoglobin 13.2 g/dL (12.0-16.0); Mean Corpuscular HGB Conc 33.5 % (30-36); Mean Corpuscular Hemoglobin 31.1 PG (26-34); Mean Corpuscular Volume 92.8 fL (80-100); Platelet Count 185 X10^3/uL (150-400); Red Blood Cell Count 4.25 X10^6/uL (4.0-5.2); Red Cell Distribution Width 13.4 % (11.6-14.8); White Blood Cell Count 7.7 X10^3/uL (4.5-11.0)
[2024-11-02 08:52] LABS: Alanine Aminotransferase 19 IU/L (<35); Albumin 3.6 g/dL (3.5-5.0); Albumin Globulin Ratio 1.4 (1.0-2.8); Alkaline Phosphatase 97 U/L (38-126); Aspartate Aminotransferase 27 IU/L (14-36); Bilirubin Total 0.5 mg/dL (0.2-1.3); Blood Urea Nitrogen 27 mg/dL (7-17); Calcium 8.8 mg/dL (8.4-10.2); Carbon Dioxide 29 mmol/L (22-32); Chloride 103 mmol/L (98-107); Estimated Glomerular Filt Rate 50 mL/min (>60); Globulin 2.6 g/dL (1.7-4.1); Glucose 94 mg/dL (70-99); HEMOLYSIS < 15 (0-50); Sodium 139 mmol/L (137-145); Total Protein 6.2 g/dL (6.3-8.2)
== END ==
LOC: LAB 06:00
PROVIDERS: PCP Nurse Practitioner Family; Visit Provider Nurse Practitioner Family
DX: I10 Essential (primary) hypertension (principal); R53.1 Weakness
CPT/HCPCS: 36415; 80053; 85027

== ENCOUNTER 2025-03-20 22:35 | Emergency (ER) | payer MEDICARE, MEDICAID, SELFPAY ==
[2025-03-20 22:41] VITALS: BP 112/80; PULSE 90; RESP 18; TEMP 37; O2SAT 99
--- NOTE | 2025-03-20 23:00 | PC.NURSE ---
edges reapproximated on the skin tear to the left forearm and bandaid applied to area
--- NOTE | 2025-03-20 23:02 | ED.FALL ---
HPI - Fall General Chief Complaint: Fall Stated Complaint: fall Time Seen by Provider: 03/20/25 23:02 Source: EMS Mode of arrival: EMS History of Present Illness HPI Narrative: 89-year-old female current resident at [facility], with history of dementia, had unwitnessed fall tonight, thinks that she might have tripped but is unsure. Denies bump or pain to her head, denies neck pain, denies back or chest pain, denies abdominal pain. Has some pain to her left knee, left wrist, right hand. No blood thinners taken. Related Data Previous Rx's ?Medication ?Instructions ?Recorded apixaban 5 mg (74 tabs) tablets in 5 mg PO Q12H #74 ea 02/25/22 a dose pack (Leixir DVT-PE Treat 30D Start) cephalexin 500 mg capsule 500 mg PO QID 7 days #28 caps 03/21/25 Allergies Allergy/AdvReac Type Severity Reaction Status Date / Time No Known Allergies Allergy Verified 03/20/25 22:41 Patient History alcohol intake frequency: other Exam Narrative Exam Narrative: GENERAL: Well-developed patient, in mild distress. HEAD: Atraumatic. Normocephalic. EYES: Pupils equal round and reactive. Extraocular motions intact. No scleral icterus. No injection or drainage. ENT: Nose without bleeding, purulent drainage. Throat without erythema, tonsillar hypertrophy or exudate. Airway patent. NECK: Trachea midline. Non tender CARDIOVASCULAR: Regular rate and rhythm without murmurs, gallops, or rubs. RESPIRATORY: Clear to auscultation. Breath sounds equal bilaterally. No wheezes, rales, or rhonchi. GASTROINTESTINAL: Abdomen soft, non-tender, nondistended. EXTREMITIES: Tenderness left knee without gross deformity. Mild tenderness left hip trochanteric more so than anteriorly. Right hand 1st webspace dorsal 2.5 by 2 cm area of skin avulsion full-thickness, with visible tendon in muscle structures but no deep tissue injuries obvious, no foreign body obvious. Small left-hand BACK: Nontender without deformity or crepitance. No flank tenderness. NEURO: AOx3. Motor functions grossly nonfocal. SKIN: No rash or erythema of visible areas Initial Vital Signs Initial Vital Signs: Vital Signs Temperature 98.6 F 03/20/25 22:41 Pulse Rate 90 03/20/25 22:41 Respiratory Rate 18 03/20/25 22:41 Blood Pressure 112/80 03/20/25 22:41 Pulse Oximetry 99 03/20/25 22:41 Oxygen Delivery Method Room Air 03/20/25 22:41 Course Orders Ordered: ED Orders 03/20/25 23:18 XR hand RT min 3V Stat XR knee LT 1to2V Stat 03/20/25 23:19 XR hip w pel LT 2V Stat 03/21/25 00:08 CT head/brain wo con Stat 03/21/25 00:09 CT cervical spine wo con Stat 03/21/25 00:13 EKG-12 Lead Stat 03/21/25 01:00 CBC Auto Diff [Complete Blood Count AUTO DIFF] Stat CMP [Comprehensive Metabolic Panel] Stat Troponin I Stat Discontinued Medications Bacitracin (Bacitracin Oint 0.9 Gm Pckt) 1 applic TOP NOW ONE Stop: 03/21/25 01:44 Last Admin: 03/21/25 01:48 Dose: 1 applic Documented By: CRYSTAL Cephalexin HCl (Cephalexin 250 Mg Capsule) 500 mg PO NOW ONE Stop: 03/21/25 01:41 Last Admin: 03/21/25 01:48 Dose: 500 mg Documented By: CRYSTAL Vital Signs Vital signs: Vital Signs - 8 hr 03/20/25 22:41 03/21/25 03:03 Temperature 98.6 F 98.2 F Pulse Rate 90 95 H Respiratory Rate 18 18 Blood Pressure 112/80 132/65 Pulse Oximetry 99 97 Oxygen Delivery Method Room Air Room Air MDM - Fall Lab Data Attestation: I reviewed the patient's lab results. Lab results narrative: White blood cell count 7800, hemoglobin 14, 187,000. Glucose, renal function, serum CO2, electrolytes unremarkable. Liver functions normal. Troponin negative. 03/21/25 01:00 03/21/25 01:00 Labs: Lab Results 03/21/25 Range/Units 01:00 WBC 7.8 (4.5-11.0) X10^3/uL RBC 4.56 (4.0-5.2) X10^6/uL Hgb 14.0 (12.0-16.0) g/dL Hct 41.4 (36-46) % MCV 90.9 (80-100) fL MCH 30.8 (26-34) PG MCHC 33.8 (30-36) % RDW 14.3 (11.6-14.8) % Plt Count 187 (150-400) X10^3/uL Neut % (Auto) 55.6 (50-75) % Lymph % (Auto) 28.8 (25-40) % [place] % (Auto) 9.4 (3-14) % Eos % (Auto) 5.4 H (2-4) % Baso % (Auto) 0.8 (0-2) % Neut # (Auto) 4300 (8775-9813) /uL Lymph # (Auto) 2300 (7006-3989) /uL [place] # (Auto) 700 (0-900) /uL Eos # (Auto) 400 (0-450) /uL Baso # (Auto) 100 (0-100) /uL Sodium 138 (137-145) mmol/L Potassium 3.8 (3.4-5.1) mmol/L Chloride 101 (98-107) mmol/L Carbon Dioxide 27 (22-32) mmol/L BUN 25 H (7-17) mg/dL Creatinine 1.00 (0.52-1.04) mg/dL Estimated GFR 55 L (>60) mL/min BUN/Creatinine Ratio 25.0 H (6-22) Glucose 98 (70-99) mg/dL Calcium 8.9 (8.4-10.2) mg/dL Total Bilirubin 0.4 (0.2-1.3) mg/dL AST 22 (14-36) IU/L ALT 17 (<35) IU/L Alkaline Phosphatase 106 (38-126) U/L Troponin I < 0.012 (0.01-0.034) ng/mL Total Protein 7.4 (6.3-8.2) g/dL Albumin 4.2 (3.5-5.0) g/dL Globulin 3.2 (1.7-4.1) g/dL Albumin/Globulin Ratio 1.3 (1.0-2.8) Imaging Data Extremity x-ray #1: Radiologist's Impression: [address] [address] XRay Report Signed Patient: Vivian Arshad MR#: [id number] : 1935 Acct:[id number] Age/Sex: 89 / F Date of Service: 03/20/25 Loc: ED Accession Number: [id number] Procedure: XR hand RT min 3V Ordering Provider: Marc Wilson MD PROCEDURE: XR HAND RT MIN 3V INDICATIONS: lac, fall, eval for fracture TECHNIQUE: 3 views of the hand(s) acquired. COMPARISON: Located Within [facility], , XR HAND RT MIN 3V, 07/15/2024, 11:37. FINDINGS AND IMPRESSION: Suspect deformity at the base of the 5th metacarpal, likely present previously. No definite acute displaced fracture or dislocation. Background significant arthritic changes throughout the hand and wrist. No suspicious soft tissue calcifications. If there is high concern for occult injury, consider repeat radiography in about 7 days or cross-sectional imaging. Dictated by: Diego Camacho M.D. on 03/21/2025 at 0:06 Approved by: Diego Camacho M.D. on 03/21/2025 at 0:08 Extremity x-ray #2: Radiologist's Impression: [place] [address] XRay Report Signed Patient: Vivian Arshad MR#: [id number] : 1935 Acct:[id number] Age/Sex: 89 / F Date of Service: 03/20/25 Loc: ED Accession Number: [id number] Procedure: XR knee LT 1to2V Ordering Provider: Marc Wilson MD PROCEDURE: XR KNEE LT 1TO2V INDICATIONS: left knee pain, GLF TECHNIQUE: 3 views of the knee were acquired. COMPARISON: Located Within [facility], , XR KNEE LT 3V, 07/15/2024, 11:37. [facility], XR KNEE LT 1TO2V, 12/30/2023, 6:35. FINDINGS AND IMPRESSION: No displaced fracture or dislocation is seen. Likely old deformity of the proximal fibular shaft. Trichrome enteral degenerative changes with almost complete joint space narrowing in the patellofemoral compartment. Patellar enthesopathy. Trace joint effusion. If there is high concern for further derangement, consider MRI evaluation. Dictated by: Diego Camacho M.D. on 03/21/2025 at 0:09 Approved by: Diego Camacho M.D. on 03/21/2025 at 0:10 Extremity x-ray #3: Radiologist's Impression: [address] [address] XRay Report Signed Patient: Vivian Arshad MR#: [id number] : 1935 Acct:[id number] Age/Sex: 89 / F Date of Service: 03/20/25 Loc: ED Accession Number: [id number] Procedure: XR hip w pel LT 2V Ordering Provider: Marc Wilson MD PROCEDURE: XR HIP W PEL IF DONE LT 2V INDICATIONS: GLF, left hip pain TECHNIQUE: 2 views of the hip were acquired. COMPARISON: None. FINDINGS AND IMPRESSION: No acute displaced fracture or dislocation. Lumbosacral, pubic symphysis, and bilateral hip degenerative changes are present. Moderate to large rectal stool ball. If there is high concern for occult injury, consider repeat radiography in about 7 days or cross-sectional imaging. Dictated by: Diego Camacho M.D. on 03/21/2025 at 0:08 Approved by: Diego Camacho M.D. on 03/21/2025 at 0:09 CT scan - head: Radiologist's Impression: [address] [address] [address] Scan Report Signed Patient: Vivian Arshad MR#: [id number] : 1935 Acct:[id number] Age/Sex: 89 / F Date of Service: 03/21/25 Loc: ED Accession Number: [id number] Procedure: CT head/brain wo con Ordering Provider: Marc Wilson MD PROCEDURE: CT HEAD/BRAIN WO CON INDICATIONS: unwitnessed fall, dementia TECHNIQUE: Noncontrast 4.5 mm thick angled axial sections acquired from the foramen magnum to the vertex, with coronal and sagittal reformats. For radiation dose reduction, the following was used: automated exposure control, adjustment of mA and/or kV according to patient size. COMPARISON: Located Within [facility], CT, CT HEAD/BRAIN WO CON, 07/15/2024, 11:39. FINDINGS: Image quality: Motion degraded CSF spaces: Basal cisterns are patent. Lateral ventricles are symmetric. Volume: Vascular calcifications. Periventricular white matter disease is commonly seen with chronic microangiopathy. Volume loss is present. These findings are moderate Brain: Diffuse calcifications again seen along the falx. No large hemorrhage identified. No gross loss of judd-white differentiation Craniofacial structures: Calvarial hyperostosis. Partially seen paranasal sinus opacities. IMPRESSION: Motion degraded CT. No acute hemorrhage identified Dictated by: Diego Camacho M.D. on 03/21/2025 at 0:54 Approved by: Diego Camacho M.D. on 03/21/2025 at 0:56 CT - cervical spine: Radiologist's Impression: [address] [address] [address] Scan Report Signed Patient: Vivian Arshad MR#: [id number] : 1935 Acct:[id number] Age/Sex: 89 / F Date of Service: 03/21/25 Loc: ED Accession Number: [id number] Procedure: CT cervical spine wo con Ordering Provider: Marc Wilson MD PROCEDURE: CT CERVICAL SPINE WO CON INDICATIONS: GLF, dementia TECHNIQUE: Noncontrast 3 mm thick sections acquired from the skull base to the T4 level. Sagittal and coronal reformats were then constructed. For radiation dose reduction, the following was used: automated exposure control, adjustment of mA and/or kV according to patient size. COMPARISON: Located Within [facility], CT, CT CERVICAL SPINE WO CON, 07/15/2024, 11:39. FINDINGS: Image quality: Diagnostic Bones: Moderate to severe cervical spondylosis with multilevel disc space height loss, facet arthropathy, and osteophytes. Suspect hemangioma is present at T1, as before. Soft tissues: No apical pneumothorax. No pathologic prevertebral swelling atherosclerotic vascular calcifications are present. IMPRESSION: No displaced fracture or traumatic subluxation. Moderate to severe spondylosis. If there is high concern for further derangement, consider MRI evaluation. Dictated by: Diego Camacho M.D. on 03/21/2025 at 0:57 Approved by: Diego Camacho M.D. on 03/21/2025 at 0:59 ECG Data Attestation: I personally reviewed and interpreted this ECG as follows: Interpretation: 0051, atrial fibrillation with rate 93, no obvious ST segment elevation, low voltage QRS noted. QRS interval 80, QTC interval 457. MDM Narrative Medical decision making narrative: 89-year-old female resident of [facility] had unwitnessed fall, with complaint of right hand skin laceration avulsion skin, small avulsion skin left elbow region, left knee pain, left hip pain. Denies preceding chest pain, not sure if she tripped on something, does not seem to have insight of why she might have fallen. History of dementia noted. Lab data: White blood cell count 7800, hemoglobin 14, [id number]. Glucose, renal function, serum CO2, electrolytes unremarkable. Liver functions normal. Troponin negative. CT head, no acute changes. See radiology report. CT cervical spine, arthritic changes, no bony fracture or subluxation/dislocation changes. See radiology report. X-ray series right hand, left knee, left hip/pelvis without obvious fractures, degenerative joint changes noted. See radiology reports. Avulsion skin 2.5 x 2 cm 1st webspace dorsal with visible tendon muscle structures but no foreign body. Oral cephalexin dose given. Case discussed with on-call orthopedic surgery Dr. Mirza, who feels patient is likely not candidate for skin grafting but might be followed up with wound care clinic. Agrees with antibiotic prophylaxis to help prevent infection into deep space hand reasons. He would like to see patient in 2 days Thursday, and we will help coordinate referral to wound care clinic. Antibiotic prescription for further Keflex printed, to be filled through [facility] facility. Dressing to avulsion wound with antibiotic ointment, Xeroform, nonstick Telfa, Cody wrap. BLS transport back to [facility]. Follow up with Orthopedic surgery as above in 2 days. Discharge Plan Departure Patient Disposition: Home Clinical Impression: Laceration of hand, complicated, Contusion of left knee, Contusion of left hip, Laceration of arm Activity Restrictions/Additional Instructions: Unwitnessed fall at memory care unit. CT head and cervical spine with arthritic changes but no obvious fractures, no brain bleeding or lesions. EKG and blood testing not suggestive of underlying heart attack has cause of her fall. X-rays right hand, left knee, left hip, with no definite fracture but considerable arthritic change. Avulsion skin laceration over the 1st webspace dorsal aspect of the right hand, scant threads of skin excised. At some risk of possible infection, oral dose of cephalexin antibiotic given, prescription printed for further antibiotic 7 day course. Skin exposure avulsion segment of proximally 1/4 or half dollar in size, not really suturable, with visible tendinous muscular structures, no obvious hand fracture by x-ray. Discussed with Orthopedic surgery. Likely to advanced in age for skin grafting, anticipate close follow up with Orthopedic surgery, and possible referral to wound care. Dressing placed in the emergency department with antibiotic ointment, Xeroform, nonstick, Cody wrap. Follow up with Orthopedic surgery on Thursday with Dr. Mirza. Return earlier to this/emergency department for any change worsening symptoms or any concerns prior. Also small left elbow region avulsion laceration, closed with 2 Steri-Strips. No x-rays indicated in that area. Prescriptions: New cephalexin 500 mg capsule 500 mg PO QID 7 Days Qty: 28 0RF No Action Eliquis DVT-PE Treat 30D Start 5 mg (74 tabs) tablets,dose pack 5 mg PO Q12H Qty: 74 0RF Referrals: Alicia Pal ARNP [Primary Care Provider, Medical] Ty Mirza MD [Physician, Orthopedic Surgery] Stand Alone Forms: Patient Portal/API
--- NOTE | 2025-03-20 23:18 | DI.RAD.S_ITS ---
PROCEDURE: XR HAND RT MIN 3V
--- NOTE | 2025-03-20 23:18 | DI.RAD.S_ITS ---
PROCEDURE: XR KNEE LT 1TO2V
--- NOTE | 2025-03-20 23:19 | DI.RAD.S_ITS ---
PROCEDURE: XR HIP W PEL IF DONE LT 2V
--- NOTE | 2025-03-20 23:35 | PC.NURSE ---
Large skin tear to R hand between thumb and index finger. Flap of skin was debrided by Dr Wilson; wound irrigated with 1L NS; pt tolerated well. Wound dressed with xeroform and gauze wrapping.
--- NOTE | 2025-03-21 00:08 | DI.CT.S_ITS ---
PROCEDURE: CT HEAD/BRAIN WO CON
--- NOTE | 2025-03-21 00:09 | DI.CT.S_ITS ---
PROCEDURE: CT CERVICAL SPINE WO CON
--- NOTE | 2025-03-21 00:13 | EKG_ITS ---
[facility]
[2025-03-21 01:08] LABS: Add Manual Diff / Slide Review NO; Hematocrit 41.4 % (36-46); Hemoglobin 14.0 g/dL (12.0-16.0); Lymphocytes Absolute Auto 2300 /uL (1100-4500); Mean Corpuscular HGB Conc 33.8 % (30-36); Mean Corpuscular Hemoglobin 30.8 PG (26-34); Mean Corpuscular Volume 90.9 fL (80-100); Platelet Count 187 X10^3/uL (150-400)
[2025-03-21 01:22] LABS: Alanine Aminotransferase 17 IU/L (<35); Albumin 4.2 g/dL (3.5-5.0); Albumin Globulin Ratio 1.3 (1.0-2.8); Alkaline Phosphatase 106 U/L (38-126); Blood Urea Nitrogen 25 mg/dL (7-17); Calcium 8.9 mg/dL (8.4-10.2); Carbon Dioxide 27 mmol/L (22-32); Chloride 101 mmol/L (98-107); Estimated Glomerular Filt Rate 55 mL/min (>60); Globulin 3.2 g/dL (1.7-4.1); Glucose 98 mg/dL (70-99); HEMOLYSIS < 15 (0-50); Potassium 3.8 mmol/L (3.4-5.1); Sodium 138 mmol/L (137-145); Total Protein 7.4 g/dL (6.3-8.2)
[2025-03-21 01:34] LABS: Troponin I < 0.012 ng/mL (0.01-0.034)
[2025-03-21] MEDS: BACITRACIN OINT 0.9 GM PCKT 1 APPLIC TOP (01:48)
--- NOTE | 2025-03-21 02:59 | PC.NURSE ---
pt has to be reoriented to room and place every few minues in Rm 8 so she can be watched to keep her safe
[2025-03-21 03:03] VITALS: BP 132/65; PULSE 95; RESP 18; TEMP 36.8; O2SAT 97
== END 2025-03-21 03:15 | disposition home or self-care (01) ==
PROVIDERS: Emergency Provider Emergency Medicine; PCP Nurse Practitioner Family
DX: S61.411A Laceration without foreign body of right hand, initial encounter (principal); S80.02XA Contusion of left knee, initial encounter; S70.02XA Contusion of left hip, initial encounter; S51.012A Laceration without foreign body of left elbow, initial encounter; W19.XXXA Unspecified fall, initial encounter; F03.90 Unspecified dementia, unspecified severity, without behavioral disturbance, psychotic disturbance, mood disturbance, and anxiety
CPT/HCPCS: 36415; 70450; 72125; 73130; 73502; 73560; 80053; 84484; 85025; 93005; 99284